=== PATIENT | male | born 1950 | race Caucasian/White ===

== ENCOUNTER → 2016-07-02 | Outpatient (CLI) | payer MEDICARE, OTHER | LOC: OD 16:42 | PROVIDERS: ATTEND Urology | DX: R97.21 Rising PSA following treatment for malignant neoplasm of prostate (principal) | CPT/HCPCS: 36415 ==

== ENCOUNTER 2016-12-23 16:12 | Inpatient (IN) | payer MEDICARE ==
[2016-12-23] MEDS ORDERED: LEVOFLOXACIN 750 MG/D5W RTU 150 ML IV ONE (16:39)
[2016-12-23] MEDS ORDERED: ACETAMINOPHEN 325 MG TABLET PO ONE (16:39)
[2016-12-23] MEDS: NORMAL SALINE 1000 ML 1,000 ML IV PRN ×2 (16:56→17:39)
[2016-12-23 17:15] LABS: PROTHROMBIN TIME 13.4 SEC (11.4-15.4)
[2016-12-23] MEDS ORDERED: ALBUTEROL SULFATE 0.083% NEB 2.5 MG/3 ML AMPUL NEB ONE (17:22)
--- NOTE | 2016-12-23 17:24 | ER Document Report ---
ED Fever - General Chief Complaint: Fever Stated Complaint: FEVER,TREMORS Time Seen by Provider: 12/23/16 16:39 Mode of Arrival: Ambulatory Information source: Patient, Relative TRAVEL OUTSIDE OF THE [place] IN LAST 30 DAYS: No - HPI Patient complains to provider of: Generalized weakness, fever, chills Onset: Yesterday Onset/Duration: Worse Quality of pain: Achy Severity: Moderate Pain Level: 4 Associated symptoms: Body/muscle aches, Weakness Similar symptoms previously: No Recently seen / treated by doctor: Yes Notes: Patient is a 66-year-old male with a history of diabetes, high cholesterol, who recently had a penile implant performed on Thursday of last week, presents to the emergency room with daughter today, for complaints of fever, generalized weakness, decreased appetite, decreased responsiveness, daughter reports she has been sleeping a lot over the past few days, he has been taking his Percocet every 4 hours so he has had a low-grade temp, he has had a nonproductive cough, no nausea or vomiting, no drainage from his wound, no difficulty or pain with urination - Related Data Allergies/Adverse Reactions: Penicillins Allergy (Severe, Verified 12/23/16 16:30) Anaphylaxis Home Medications: Current Home Medications Canagliflozin [Invokana] 1 tab PO DAILY 12/23/16 [History] Ciprofloxacin HCl [Cipro 500 mg Tablet] 500 mg PO BID 12/23/16 [History] Gabapentin 100 mg PO BID 12/23/16 [History] Hydralazine HCl 50 mg PO TID 12/23/16 [History] Lisinopril/Hydrochlorothiazide [Lisinopril-Hctz 20-25 mg Tab] 1 each PO DAILY [History] Oxycodone HCl/Acetaminophen [Oxycodone-Acetaminophen 5-325] 1 each PO Q4H PRN [History] Simvastatin [Zocor 20 mg Tablet] 20 mg PO QHS 12/23/16 [History] Sulfamethoxazole/Trimethoprim [Bactrim Ds Tablet] 1 each PO BID 12/23/16 [ History] Past Medical History - General Information source: Patient, Relative - Social History Smoking Status: Never Smoker Frequency of alcohol use: None Drug Abuse: None Family History: Reviewed & Not Pertinent Patient has suicidal ideation: No Patient has homicidal ideation: No - Past Medical History Cardiac Medical History: Reports: Hx Coronary Artery Disease, Hx Hypercholesterolemia, Hx Hypertension Denies: Hx Heart Attack Pulmonary Medical History: Reports: Hx Asthma Denies: Hx Bronchitis, Hx COPD, Hx Pneumonia Neurological Medical History: Denies: Hx Cerebrovascular Accident, Hx Seizures Endocrine Medical History: Reports: Hx Diabetes Mellitus Type 2 Renal/ Medical History: Denies: Hx Peritoneal Dialysis Musculoskeltal Medical History: Denies Hx Arthritis - Immunizations Hx Diphtheria, Pertussis, Tetanus Vaccination: No Review of Systems - Review of Systems Constitutional: See HPI EENT: No symptoms reported Cardiovascular: No symptoms reported Respiratory: No symptoms reported Gastrointestinal: See HPI Genitourinary: No symptoms reported Male Genitourinary: See HPI Musculoskeletal: No symptoms reported Skin: No symptoms reported Hematologic/Lymphatic: No symptoms reported Neurological/Psychological: No symptoms reported -: Yes All other systems reviewed and negative Physical Exam - Vital signs Vitals: Temp Pulse BP Pulse Ox 97.9 F 80 112/98 H 89 L 12/23/16 16:34 12/23/16 16:34 12/23/16 16:34 12/23/16 16:34 Interpretation: Hypoxic - General General appearance: Appears well, Alert - HEENT Head: Normocephalic, Atraumatic Eyes: Normal Conjunctiva: Normal Extraocular movements intact: Yes Eyelashes: Normal Pupils: PERRL Mucous membranes: Dry Pharynx: Normal Neck: Normal - Respiratory Respiratory status: No respiratory distress Chest status: Nontender Breath sounds: Wheezing - mild Chest palpation: Normal - Cardiovascular Rhythm: Regular Heart sounds: Normal auscultation Murmur: No - Abdominal Inspection: Normal Distension: No distension Bowel sounds: Normal Tenderness: Nontender Organomegaly: No organomegaly - Genitourinary Scrotum: Other - Diffuse ecchymosis, diffuse mild tenderness, no masses, no active drainage, surgical wound is clean dry and intact - Back Back: Normal, Nontender - Extremities General upper extremity: Normal inspection, Nontender, Normal color, Normal ROM , Normal temperature General lower extremity: Normal inspection, Nontender, Normal color, Normal ROM , Normal temperature, Normal weight bearing. No: Steven's sign - Neurological Neuro grossly intact: Yes Cognition: Normal Orientation: AAOx4 [place]aim Coma Scale Eye Opening: Spontaneous [place] Coma Scale Verbal: Oriented [place] Coma Scale Motor: Obeys Commands [place] Coma Scale Total: 15 Speech: Normal Motor strength normal: LUE, RUE, LLE, RLE Sensory: Normal - Psychological Associated symptoms: Normal affect, Normal mood - Skin Skin Temperature: Warm Skin Moisture: Dry Skin Color: Normal Course - Re-evaluation Re-evalutation: 12/23/16 18:51 patient was discussed with Dr. River Cash, urologist to [facility], he did review patient's previous records including preop labs which showed a BUN and creatinine at 33 and 1.28, no liver enzymes were performed for preop labs Was discussed with agile test lead, Dr. Andrews, increased to see patient on consult, requested that a renal ultrasound be performed, also patient to receive IV fluids as symptoms are likely related to dehydration 12/23/16 19:01 Requested channel process plant operator to call Dr. Nina, channel process plant operator left a voicemail requesting a return phone call 12/23/16 19:[address] Houston who agrees to admit to the IM for further evaluation and treatment - Vital Signs Vital signs: Temp Pulse Resp BP Pulse Ox 97.9 F 80 18 112/98 H 89 L 12/23/16 16:34 12/23/16 16:34 12/23/16 16:39 12/23/16 16:34 12/23/16 16:34 - Laboratory Result Diagrams: 12/23/16 16:55 12/23/16 16:55 Laboratory results interpreted by me: 12/23/16 12/23/16 16:55 16:55 Seg Neuts % (Manual) 88 H Band Neutrophils % 1 L Lymphocytes % (Manual) 1 L Abs Lymphs (Manual) 0.1 L Sodium 133.5 L Potassium 5.2 H Carbon Dioxide 21 L BUN 94 H Creatinine 4.37 H Est GFR ( Amer) 16 L Est GFR (Non-Af Amer) 14 L Glucose 193 H Direct Bilirubin 0.7 H AST 104 H ALT 87 H Alkaline Phosphatase 162 H Albumin 3.3 L - Diagnostic Test Radiology reviewed: Image reviewed, Reports reviewed - EKG Interpretation by Me EKG shows normal: Sinus rhythm Rate: Normal Rhythm: NSR Discharge - Discharge Clinical Impression: Acute renal insufficiency Pneumonia Qualifiers: Pneumonia type: due to unspecified organism Laterality: bilateral Lung location : lower lobe of lung Qualified Code(s): J18.9 - Pneumonia, unspecified organism Condition: Fair Disposition: ADMITTED INPATIENT Admitting Provider: [facility] Unit Admitted: [facility]
[2016-12-23 17:27] LABS: HEMATOCRIT 42.3 % (37.9-51.0); HEMOGLOBIN 14.3 g/dL (13.5-17.0); HGB HCT DIFFERENCE 0.6; MEAN CORPUSCULAR HEMOGLOBIN 30.2 pg (27.0-33.4); MEAN CORPUSCULAR HGB CONC 33.8 g/dL (32.0-36.0); MEAN CORPUSCULAR VOLUME 89 fl (80-97); RED BLOOD COUNT 4.73 10^6/uL (4.35-5.55); RED CELL DISTRIBUTION WIDTH 13.7 % (11.5-14.0)
[2016-12-23 17:28] LABS: VENOUS BLOOD BASE EXCESS -2.5 mmol/L; VENOUS BLOOD HCO3 22.3 mmol/L (20-32); VENOUS BLOOD PCO2 38.8 mmHg (35-63); VENOUS BLOOD PH 7.38 (7.30-7.42)
[2016-12-23 17:29] LABS: ALANINE AMINOTRANSFERASE 87 U/L (21-72); ALBUMIN 3.3 g/dL (3.5-5.0); ALKALINE PHOSPHATASE 162 U/L (38-126); ANION GAP 15 (5-19); ASPARTATE AMINO TRANSFERASE 104 U/L (17-59); BILIRUBIN,DIRECT 0.7 mg/dL (0.0-0.4); BILIRUBIN,TOTAL 0.7 mg/dL (0.2-1.3); BLOOD UREA NITROGEN 94 mg/dL (7-20); CALCIUM 9.3 mg/dL (8.4-10.2); CARBON DIOXIDE 21 mmol/L (22-30); CHLORIDE 98 mmol/L (98-107); GLUCOSE 193 mg/dL (75-110); POTASSIUM 5.2 mmol/L (3.6-5.0); SODIUM 133.5 mmol/L (137-145)
[2016-12-23 17:34] LABS: CREATININE RESULT 4.37 mg/dL (0.52-1.25)
[2016-12-23 17:48] LABS: BAND NEUTROPHILS % (MANUAL) 1 % (3-5); BASOPHILS % (MANUAL) 2 % (0-2); EOSINOPHILS % (MANUAL) 3 % (0-6); LYMPHOCYTES % (MANUAL) 1 % (13-45); TOTAL CELLS COUNTED 100
[2016-12-23 17:49] LABS: RBC MORPHOLOGY COMMENT NORMO-CYTIC/CHROMIC
--- NOTE | 2016-12-23 18:38 | RADIOLOGY REPORT (SQ) ---
EXAM DESCRIPTION: CHEST PA/LAT COMPLETED DATE/TIME: 12/23/2016 6:21 pm REASON FOR STUDY: cough COMPARISON: None. EXAM PARAMETERS: NUMBER OF VIEWS: two views TECHNIQUE: Digital Frontal and Lateral radiographic views of the chest acquired. RADIATION DOSE: NA LIMITATIONS: none FINDINGS: LUNGS AND PLEURA: Bilateral lower lobe airspace disease with trace bilateral pleural effus ions. MEDIASTINUM AND HILAR STRUCTURES: No masses or contour abnormalities. HEART AND VASCULAR STRUCTURES: Heart is enlarge. No evidence for failure. BONES: No acute findings. HARDWARE: None in the chest. OTHER: No other significant finding. IMPRESSION: BILATERAL LOWER LOBE AIRSPACE DISEASE WITH TRACE BILATERAL PLEURAL EFFUSIONS. MAIN DIFF ERENTIAL INCLUDES SUBSEGMENTAL ATELECTASIS, ASPIRATION, OR PNEUMONIA. RECOMMEND FOLLOWUP RADIOGRAPHS 4 TO 6 WEEKS TO ENSURE RESOLUTION. TECHNICAL DOCUMENTATION: JOB ID: [id number] [employer]- All Rights Reserved
[2016-12-23] MEDS ORDERED: NORMAL SALINE 1000 ML 1,000 ML IV PRN ×2 (18:46→19:30)
--- NOTE | 2016-12-23 22:26 | RADIOLOGY REPORT (SQ) ---
EXAM DESCRIPTION: U/S RETROPERITON LTD COMPLETED DATE/TIME: 12/23/2016 10:18 pm REASON FOR STUDY: acute renal insufficiency COMPARISON: None. TECHNIQUE: Dynamic and static grayscale images acquired of the kidneys and bladder and recorded on P ACS. Additional selected color Doppler and spectral images recorded. LIMITATIONS: Study is limited due to the patient's condition. FINDINGS: RIGHT KIDNEY: 11.4 cm in length. Normal echogenicity. No solid or suspicious masses. No hydronephrosis. No calcifications. LEFT KIDNEY: 14.9 cm in length. Normal echogenicity. No solid or suspicious masses. No hydrone phrosis. No calcifications. BLADDER: Bladder was not visualized. OTHER FINDINGS: No other significant finding. IMPRESSION: Limited study as noted above. No significant renal abnormalities were identified TECHNICAL DOCUMENTATION: JOB ID: [id number] [employer]- All Rights Reserved
[2016-12-23] MEDS ORDERED: IPRATROPIUM/ALBUTEROL 0.5-2.5 MG/3 ML AMPUL NEB PRN (23:45)
[2016-12-24] MEDS ORDERED: DEXTROSE 40% GEL 15 GM TUBE PO PRN (00:07)
[2016-12-24] MEDS ORDERED: DEXTROSE 50%-WATER SYRINGE 25 GM/50 ML DOSE IV PRN (00:07)
[2016-12-24] MEDS ORDERED: GLUCAGON,HUMAN RECOMB 1 MG INJ IM PRN (00:07)
[2016-12-24] MEDS ORDERED: DEXTROSE 50%-WATER SYRINGE 12.5 GM/25 ML DOSE IV PRN (00:07)
[2016-12-24] MEDS ORDERED: DEXTROSE 40% GEL 15 GM TUBE X 2 PO PRN (00:07)
[2016-12-24] MEDS ORDERED: ACETAMINOPHEN 325 MG TABLET PO PRN (00:08)
[2016-12-24] MEDS: OXYCODONE-ACETAMINOPHEN 5-325 MG TABLET PO PRN ×2 (01:00→09:20)
[2016-12-24 02:04] LABS: APPEARANCE,URINE SLIGHTLY-CLOUDY; BILIRUBIN,URINE NEGATIVE (NEGATIVE); GLUCOSE, URINE >=500 mg/dL (NEGATIVE); KETONES,URINE NEGATIVE (NEGATIVE); LEUKOCYTE ESTERASE,URINE NEGATIVE (NEGATIVE); NITRITE,URINE NEGATIVE (NEGATIVE); PROTEIN,URINE NEGATIVE (NEGATIVE); URINE SPECIFIC GRAVITY 1.012; UROBILINOGEN,URINE NEGATIVE mg/dL (<2.0)
[2016-12-24] MEDS: LANSOPRAZOLE 30 MG TAB.RAP.DR PO SCH (05:25)
[2016-12-24] MEDS: HEPARIN SOD (PORCINE) 5,000 UNIT/ML 1 ML SYRINGE SUBCUT SCH ×3 (05:26→21:34)
[2016-12-24] MEDS: NORMAL SALINE 1000 ML 1,000 ML IV PRN (05:27)
[2016-12-24] MEDS: HYDRALAZINE HCL 50 MG TABLET PO SCH ×3 (06:23→21:30)
[2016-12-24 07:49] LABS: HEMATOCRIT 35.4 % (37.9-51.0); HGB HCT DIFFERENCE 0.6; MEAN CORPUSCULAR HEMOGLOBIN 30.8 pg (27.0-33.4); MEAN CORPUSCULAR VOLUME 91 fl (80-97); RED CELL DISTRIBUTION WIDTH 13.5 % (11.5-14.0); WHITE BLOOD COUNT 6.1 10^3/uL (4.0-10.5)
[2016-12-24 07:58] LABS: ALANINE AMINOTRANSFERASE 76 U/L (21-72); ALBUMIN 2.4 g/dL (3.5-5.0); ALKALINE PHOSPHATASE 122 U/L (38-126); ANION GAP 10 (5-19); ASPARTATE AMINO TRANSFERASE 63 U/L (17-59); BILIRUBIN,DIRECT 0.5 mg/dL (0.0-0.4); BILIRUBIN,TOTAL 0.5 mg/dL (0.2-1.3); BLOOD UREA NITROGEN 92 mg/dL (7-20); CARBON DIOXIDE 21 mmol/L (22-30); CHLORIDE 105 mmol/L (98-107); CHOLESTEROL 94.35 mg/dL (0-200); CREATININE RESULT 3.61 mg/dL (0.52-1.25); Direct HDL 15 mg/dL (>40); GLUCOSE 141 mg/dL (75-110); SODIUM 135.5 mmol/L (137-145); TOTAL PROTEIN 5.4 g/dL (6.3-8.2); TRIGLYCERIDES 158 mg/dL (<150); VLDL CHOLESTEROL 31.6 mg/dL (10-31)
[2016-12-24] MEDS: GLIPIZIDE XL 5 MG TAB.ER.24 PO SCH ×2 (08:09→20:29)
[2016-12-24 08:11] LABS: BAND NEUTROPHILS % (MANUAL) 1 % (3-5); BASOPHILS % (MANUAL) 0 % (0-2); EOSINOPHILS % (MANUAL) 1 % (0-6); LYMPHOCYTES % (MANUAL) 2 % (13-45); POLYCHROMASIA SLIGHT; TOTAL CELLS COUNTED 100
[2016-12-24 08:19] LABS: DIRECT LDL < 30 mg/dL (<100)
--- NOTE | 2016-12-24 08:20 | EKG REPORT ---
SEVERITY:- ABNORMAL ECG - SINUS RHYTHM PACS OLD ANTEROSEPTAL PR : Confirmed by: Giovanny Castillo MD 24-Dec-2016 08:20:27
[2016-12-24] MEDS: ASPIRIN 81 MG TABLET, CHEWABLE PO SCH (09:20)
[2016-12-24] MEDS: GABAPENTIN 100 MG CAPSULE PO SCH ×2 (09:20→20:28)
[2016-12-24] MEDS: AZITHROMYCIN 500 MG in DEXTROSE 5%-WATER 250 ML IV SCH (10:12)
--- NOTE | 2016-12-24 10:19 | PDOC H&P ---
History of Present Illness Admission Date/PCP: 12/23/16 19:51 Patient complains of: Decreased appetite, decreased oral intake, cough, weakness and fever since past 5 days after penile implant. History of Present Illness: VIVIAN FARR is a 66 year old male with hx of DM2/DM neuropathy/HTN/ Hyperlipidemia/PAD s.p right leg angioplasty/Arryhythmias/Back pain/Elevated PSA /ED/Obesity who had penile implant in [place] on 12/19/2016. He has been having decreased appetite, decreased oral intake, weakness, cough and some wheezes since after the procedure. On account of the worsening of the symptoms, he was brought to ER by his daughter. His oxygen saturation was 89% on RA at ER.His BUN /Cr was 94/4.3 compared to 33/1.28 on 12/08/2016 prior to the procedure. Past Medical History Cardiac Medical History: Reports: Coronary Artery Disease, Hyperlipidema, Hypertension Denies: Myocardial Infarction Pulmonary Medical History: Reports: Asthma Denies: Bronchitis, Chronic Obstructive Pulmonary Disease (COPD), Pneumonia Neurological Medical History: Denies: Seizures Endocrine Medical History: Reports: Diabetes Mellitus Type 2 Musculoskeltal Medical History: Denies: Arthritis Hematology: Denies: Anemia Social History Smoking Status: Never Smoker Frequency of Alcohol Use: Rare Hx Recreational Drug Use: No Drugs: None Hx Prescription Drug Abuse: No Family History Family History: Reviewed & Not Pertinent Parental Family History Reviewed: Yes Children Family History Reviewed: Yes Sibling(s) Family History Reviewed.: Yes Medication/Allergy Home Medications: Aspirin [Aspirin 81 mg Chewable Tablet] 1 tab PO DAILY 03/13/15 Glipizide [Glipizide ER] 10 mg PO BID 03/13/15 Metformin HCl [Glucophage] 1 tab PO BID 03/13/15 Canagliflozin [Invokana] 1 tab PO DAILY 12/23/16 Ciprofloxacin HCl [Cipro 500 mg Tablet] 500 mg PO BID 12/23/16 Gabapentin 100 mg PO BID 12/23/16 Hydralazine HCl 50 mg PO TID 12/23/16 Lisinopril/Hydrochlorothiazide [Lisinopril-Hctz 20-25 mg Tab] 1 each PO DAILY Oxycodone HCl/Acetaminophen [Oxycodone-Acetaminophen 5-325] 1 each PO Q6H PRN Simvastatin [Zocor 20 mg Tablet] 20 mg PO QHS 12/23/16 Sulfamethoxazole/Trimethoprim [Bactrim Ds Tablet] 1 each PO BID 12/23/16 Allergies/Adverse Reactions: Penicillins Allergy (Severe, Verified 12/23/16 16:30) Anaphylaxis Review of Systems All systems: as per PMH Constitutional: PRESENT: anorexia, fatigue, fever(s), weakness Eyes: PRESENT: as per HPI Ears: PRESENT: as per HPI Nose, Mouth, and Throat: PRESENT: as per HPI Cardiovascular: PRESENT: as per HPI Respiratory: PRESENT: cough Gastrointestinal: PRESENT: as per HPI Genitourinary: PRESENT: as per HPI, difficulty urinating Musculoskeletal: PRESENT: as per HPI Integumentary: PRESENT: as per HPI Neurological: PRESENT: as per HPI, weakness Psychiatric: PRESENT: as per HPI Endocrine: PRESENT: as per HPI Hematologic/Lymphatic: PRESENT: as per HPI Allergic/Immunologic: PRESENT: as per HPI Physical Exam Vital Signs: Temp Pulse Resp BP Pulse Ox 98.2 F 77 16 113/51 L 96 12/24/16 08:00 12/24/16 08:00 12/24/16 08:00 12/24/16 08:00 12/24/16 08:00 Intake & Output 12/23/16 12/24/16 12/25/16 06:59 06:59 06:59 Intake Total 1100 Output Total 1400 Balance -300 Weight 93.9 kg General appearance: PRESENT: no acute distress, cooperative, well-developed, well-nourished Head exam: PRESENT: atraumatic, normocephalic Eye exam: PRESENT: EOMI, PERRLA Ear exam: PRESENT: normal external ear exam, TM's normal bilaterally Mouth exam: PRESENT: dry mucosa, neck supple, tongue midline Neck exam: PRESENT: full ROM Respiratory exam: PRESENT: crackles, decreased breath sounds, symmetrical Cardiovascular exam: PRESENT: +S1, +S2 Pulses: PRESENT: +2 pedal pulses bilateral GI/Abdominal exam: PRESENT: normal bowel sounds, soft Rectal exam: PRESENT: deferred Neurological exam: PRESENT: alert, awake, oriented to person, oriented to place , oriented to time Psychiatric exam: PRESENT: normal mood Results Laboratory Results: 12/24/16 05:09 12/24/16 05:09 12/24/16 12/24/16 12/24/16 01:15 05:09 05:09 WBC 6.1 RBC 3.90 L Hgb 12.0 L D Hct 35.4 L MCV 91 MCH 30.8 MCHC 34.0 RDW 13.5 Plt Count 102 L Seg Neutrophils % Not Reportable Lymphocytes % Not Reportable Monocytes % Not Reportable Eosinophils % Not Reportable Basophils % Not Reportable Absolute Neutrophils Not Reportable Absolute Lymphocytes Not Reportable Absolute Monocytes Not Reportable Absolute Eosinophils Not Reportable Absolute Basophils Not Reportable Sodium 135.5 L Potassium 5.0 Chloride 105 Carbon Dioxide 21 L Anion Gap 10 BUN 92 H Creatinine 3.61 H Est GFR ( Amer) 21 L Est GFR (Non-Af Amer) 17 L Glucose 141 H Calcium 8.0 L Total Bilirubin 0.5 AST 63 H ALT 76 H Alkaline Phosphatase 122 Total Protein 5.4 L Albumin 2.4 L Triglycerides 158 H Cholesterol 94.35 LDL Cholesterol Direct < 30 VLDL Cholesterol 31.6 H HDL Cholesterol 15 L TSH Urine Color YELLOW Urine Appearance SLIGHTLY-CLOUDY Urine pH 5.0 Ur Specific [place] 1.012 Urine Protein NEGATIVE Urine Glucose (UA) >=500 H Urine Ketones NEGATIVE Urine Blood MODERATE H Urine Nitrite NEGATIVE Ur Leukocyte Esterase NEGATIVE Urine WBC (Auto) 3 Urine RBC (Auto) 28 12/24/16 05:09 WBC RBC Hgb Hct MCV MCH MCHC RDW Plt Count Seg Neutrophils % Lymphocytes % Monocytes % Eosinophils % Basophils % Absolute Neutrophils Absolute Lymphocytes Absolute Monocytes Absolute Eosinophils Absolute Basophils Sodium Potassium Chloride Carbon Dioxide Anion Gap BUN Creatinine Est GFR ( Amer) Est GFR (Non-Af Amer) Glucose Calcium Total Bilirubin AST ALT Alkaline Phosphatase Total Protein Albumin Triglycerides Cholesterol LDL Cholesterol Direct VLDL Cholesterol HDL Cholesterol TSH 3.63 Urine Color Urine Appearance Urine pH Ur Specific [place] Urine Protein Urine Glucose (UA) Urine Ketones Urine Blood Urine Nitrite Ur Leukocyte Esterase Urine WBC (Auto) Urine RBC (Auto) Impressions: Chest X-Ray 12/23/16 17:22 IMPRESSION: BILATERAL LOWER LOBE AIRSPACE DISEASE WITH TRACE BILATERAL PLEURAL EFFUSIONS. MAIN DIFFERENTIAL INCLUDES SUBSEGMENTAL ATELECTASIS, ASPIRATION, OR PNEUMONIA. RECOMMEND FOLLOWUP RADIOGRAPHS 4 TO 6 WEEKS TO ENSURE RESOLUTION. Renal Ultrasound 12/23/16 19:30 IMPRESSION: Limited study as noted above. No significant renal abnormalities were identified Assessment & Plan - Diagnosis (1) Acute kidney injury Is this a current diagnosis for this admission?: Yes Plan: He had 3 Liters of normal saline at ER; we will ct him with Normal saline at 125 cc/hr; Avoid nephrotoxics; strict input/output chart; daily weight; We will hold metformin and Lisinopril/HCTZ for now.Monitor chemistries daily.Renal US showed no obstructive uropathy. (2) Pneumonia Qualifiers: Pneumonia type: due to unspecified organism Laterality: bilateral Lung location: lower lobe of lung Qualified Code(s): J18.9 - Pneumonia, unspecified organism Is this a current diagnosis for this admission?: Yes Plan: Ct with Oxygen by N/C at 2 L/min; Rocephin 1 g daily IV; Azithromycin 500 mg qd IV; Tylenol 650 mg q4h prn po; Duonebs q6h prn; F/u Bloodand sputum cultures. (3) Diabetes mellitus type 2 in obese Is this a current diagnosis for this admission?: Yes Plan: Ct with Glipizide 10 mg BID po; Invokana 300 mg qd po; Hold Metformin 1000mg BID ; accucheck qac, qhs with slidding scale with humalog insulin oMH protocol; 1800calorie ADA diet. (4) Diabetic neuropathy Qualifiers: Diabetes mellitus type: type 2 Diabetes mellitus complication detail: diabetic polyneuropathy Qualified Code(s): E11.42 - Type 2 diabetes mellitus with diabetic polyneuropathy Is this a current diagnosis for this admission?: Yes Plan: Ct with Gabapentin 100 mg BID po. (5) Hypertension Qualifiers: Hypertension type: essential hypertension Qualified Code(s): I10 - Essential (primary) hypertension Is this a current diagnosis for this admission?: Yes Plan: Ct with Hydralazine 50 mg TID po; Hold Lisinopril/HCTZ due to acute kidney injury with hyperkalemia.Ct with 2 g sodium diet. (6) Hyperlipidemia Qualifiers: Hyperlipidemia type: mixed hyperlipidemia Qualified Code(s): E78.2 - Mixed hyperlipidemia Is this a current diagnosis for this admission?: Yes Plan: Ct with Simvastatin 20 mg qhs po; 200 mg cholesterol diet. (7) PAD (peripheral artery disease) Is this a current diagnosis for this admission?: Yes Plan: Ct with ASA 81 mg qd; cardiac diet. (8) Lumbago Is this a current diagnosis for this admission?: Yes Plan: Ct with Percocet 5/325 1 q6h prn po. (9) DVT prophylaxis Is this a current diagnosis for this admission?: Yes Plan: Ct with Heparin 5000iu q8h subcut; SCD. - Time Time Spent: 30 to 50 Minutes Medications reviewed and adjusted accordingly: Yes Anticipated discharge: Home Within: within 72 hours - Inpatient Certification Medical Necessity: Failure to Improve With Outpatient Therapy, Significant Comorbidiites Make Outpatient Treatment Too Risky, Need Close Monitoring Due to Risk of Patient Decompensation, Need For IV Fluids, Need for Pain Control, Need for IV Antibiotics
[2016-12-24] MEDS ORDERED: DOCUSATE SODIUM 100 MG CAPSULE PO ONE (12:00)
[2016-12-24] MEDS: INSULIN LISPRO 100 UNIT/ML 3 ML VIAL SUBCUT PRN (13:35)
[2016-12-24] MEDS ORDERED: ONDANSETRON HCL INJ/PF 4 MG/2 ML SDV IV PRN (19:33)
[2016-12-24] MEDS: MORPHINE SULFATE 10 MG/ML INJ IV PRN (20:23)
[2016-12-24] MEDS: DOCUSATE SODIUM 100 MG CAPSULE PO SCH (20:28)
[2016-12-24] MEDS: ZOLPIDEM TARTRATE 5 MG TABLET PO PRN (21:29)
[2016-12-24] MEDS: SIMVASTATIN 10 MG TABLET PO SCH (21:30)
[2016-12-25] MEDS: MORPHINE SULFATE 10 MG/ML INJ IV PRN ×3 (03:07→19:55)
[2016-12-25] MEDS: NORMAL SALINE 1000 ML 1,000 ML IV PRN ×2 (03:08→21:31)
[2016-12-25] MEDS: HYDRALAZINE HCL 50 MG TABLET PO SCH ×3 (05:20→21:29)
[2016-12-25] MEDS: LANSOPRAZOLE 30 MG TAB.RAP.DR PO SCH (05:24)
[2016-12-25] MEDS: HEPARIN SOD (PORCINE) 5,000 UNIT/ML 1 ML SYRINGE SUBCUT SCH ×3 (05:25→21:33)
[2016-12-25 07:22] LABS: ABSOLUTE BASOPHILS # (AUTO) 0.1 10^3/uL (0.0-0.2); ABSOLUTE EOSINOPHILS # (AUTO) 0.1 10^3/uL (0.0-0.6); ABSOLUTE LYMPHOCYTES (AUTO) 0.4 10^3/uL (0.5-4.7); ABSOLUTE MONOCYTES (AUTO) 1.1 10^3/uL (0.1-1.4); ABSOLUTE NEUT (AUTO) 4.7 10^3/uL (1.7-8.2); BASOPHILS % (AUTO) 0.8 % (0-2); EOSINOPHILS % (AUTO) 0.8 % (0-6); HEMATOCRIT 32.9 % (37.9-51.0); HEMOGLOBIN 11.2 g/dL (13.5-17.0); HGB HCT DIFFERENCE 0.7; MEAN CORPUSCULAR HEMOGLOBIN 30.8 pg (27.0-33.4); MEAN CORPUSCULAR HGB CONC 34.1 g/dL (32.0-36.0); MEAN CORPUSCULAR VOLUME 90 fl (80-97); MONOCYTES % (AUTO) 17.9 % (3-13); RED BLOOD COUNT 3.66 10^6/uL (4.35-5.55); RED CELL DISTRIBUTION WIDTH 13.4 % (11.5-14.0); SEGMENTED NEUTROPHILS % (AUTO) 74.5 % (42-78); WHITE BLOOD COUNT 6.3 10^3/uL (4.0-10.5)
[2016-12-25 07:45] LABS: ALANINE AMINOTRANSFERASE 88 U/L (21-72); ALBUMIN 2.3 g/dL (3.5-5.0); ALKALINE PHOSPHATASE 201 U/L (38-126); ANION GAP 6 (5-19); ASPARTATE AMINO TRANSFERASE 76 U/L (17-59); BILIRUBIN,DIRECT 0.5 mg/dL (0.0-0.4); BILIRUBIN,TOTAL 0.5 mg/dL (0.2-1.3); BLOOD UREA NITROGEN 82 mg/dL (7-20); CALCIUM 8.3 mg/dL (8.4-10.2); CARBON DIOXIDE 23 mmol/L (22-30); CHLORIDE 110 mmol/L (98-107); CREATININE RESULT 2.78 mg/dL (0.52-1.25); GLUCOSE 71 mg/dL (75-110); POTASSIUM 4.5 mmol/L (3.6-5.0); SODIUM 138.8 mmol/L (137-145); TOTAL PROTEIN 5.5 g/dL (6.3-8.2)
[2016-12-25] MEDS: GLIPIZIDE XL 5 MG TAB.ER.24 PO SCH ×2 (08:06→16:02)
[2016-12-25] MEDS: AZITHROMYCIN 500 MG in DEXTROSE 5%-WATER 250 ML IV SCH (10:07)
[2016-12-25] MEDS: DOCUSATE SODIUM 100 MG CAPSULE PO SCH ×2 (10:08→17:50)
[2016-12-25] MEDS: ASPIRIN 81 MG TABLET, CHEWABLE PO SCH (10:08)
[2016-12-25] MEDS: GABAPENTIN 100 MG CAPSULE PO SCH ×2 (10:08→17:50)
[2016-12-25] MEDS ORDERED: ACETAMINOPHEN 325 MG TABLET PO PRN (13:57)
--- NOTE | 2016-12-25 14:11 | PDOC PROGRESS REPORT ---
Subjective Progress Note for:: 12/25/16 Subjective:: Pt was delirious yesterday and was complaining of gen. pain worse at the scrotum. The scrotum was painful and swollen. He has not been eating well and has not had bowel movement since past 5 days after the penile implant according to his daughter.I added Morphine and Zofran IV and requested for CT abdomen and pelvis and scrotal US. I discussed his care at length with his daughter and we do not have urologist recreation facility attendant at [facility], so I called [facility] and spoke to urologist,Dr Carrillo recreation facility attendant for Dr Ibarra and he agreed to get CT abdomen/pelvis and Scrotal US and to get in touch with them this morning with report and for transfer to [place] if th ept is not getting better. Pt is better today and awake and alert and no longer in pains, though his appetite is still poor.The report of CT abdomen/pelvis and Scrotal US is still pending due to technical issues with radiology dept. I again discussed the plan of care with pt's daughter today. We will put pt on Glucerna since he is diabetic. Physical Exam Vital Signs: Temp Pulse Resp BP Pulse Ox 98.2 F 70 15 109/51 L 93 12/25/16 07:24 12/25/16 08:00 12/25/16 08:00 12/25/16 07:24 12/25/16 08:00 Intake & Output 12/24/16 12/25/16 12/26/16 06:59 06:59 06:59 Intake Total 1100 3816 Output Total 1400 2750 Balance -300 1066 Weight 93.9 kg 92.8 kg General appearance: PRESENT: no acute distress, cooperative, well-developed, well-nourished Head exam: PRESENT: atraumatic, normocephalic Eye exam: PRESENT: EOMI, PERRLA Ear exam: PRESENT: TM's normal bilaterally Mouth exam: PRESENT: neck supple, tongue midline Neck exam: PRESENT: full ROM Respiratory exam: PRESENT: clear to auscultation marino, symmetrical Cardiovascular exam: PRESENT: +S1, +S2 Pulses: PRESENT: +1 pedal pulses bilateral GI/Abdominal exam: PRESENT: normal bowel sounds, soft Additonal comments: Scrotal edema and tenderness. Rectal exam: PRESENT: deferred Neurological exam: PRESENT: alert, awake, oriented to person, oriented to place Results Laboratory Results: 12/25/16 06:06 12/25/16 06:06 12/25/16 12/25/16 06:06 06:06 WBC 6.3 RBC 3.66 L Hgb 11.2 L Hct 32.9 L MCV 90 MCH 30.8 MCHC 34.1 RDW 13.4 Plt Count 116 L Seg Neutrophils % 74.5 Lymphocytes % 6.0 L Monocytes % 17.9 H Eosinophils % 0.8 Basophils % 0.8 Absolute Neutrophils 4.7 Absolute Lymphocytes 0.4 L Absolute Monocytes 1.1 Absolute Eosinophils 0.1 Absolute Basophils 0.1 Sodium 138.8 Potassium 4.5 Chloride 110 H Carbon Dioxide 23 Anion Gap 6 BUN 82 H Creatinine 2.78 H Est GFR ( Amer) 28 L Est GFR (Non-Af Amer) 23 L Glucose 71 L Calcium 8.3 L Total Bilirubin 0.5 AST 76 H ALT 88 H Alkaline Phosphatase 201 H Total Protein 5.5 L Albumin 2.3 L Impressions: Chest X-Ray 12/23/16 17:22 IMPRESSION: BILATERAL LOWER LOBE AIRSPACE DISEASE WITH TRACE BILATERAL PLEURAL EFFUSIONS. MAIN DIFFERENTIAL INCLUDES SUBSEGMENTAL ATELECTASIS, ASPIRATION, OR PNEUMONIA. RECOMMEND FOLLOWUP RADIOGRAPHS 4 TO 6 WEEKS TO ENSURE RESOLUTION. Renal Ultrasound 12/23/16 19:30 IMPRESSION: Limited study as noted above. No significant renal abnormalities were identified Assessment & Plan - Diagnosis (1) Acute kidney injury Is this a current diagnosis for this admission?: Yes Plan: He had 3 Liters of normal saline at ER; we will ct him with Normal saline at 125 cc/hr; Avoid nephrotoxics; strict input/output chart; daily weight; We will hold metformin and Lisinopril/HCTZ for now.Monitor chemistries daily.Renal US showed no obstructive uropathy. (2) Pneumonia Qualifiers: Pneumonia type: due to unspecified organism Laterality: bilateral Lung location: lower lobe of lung Qualified Code(s): J18.9 - Pneumonia, unspecified organism Is this a current diagnosis for this admission?: Yes Plan: Ct with Oxygen by N/C at 2 L/min; Rocephin 1 g daily IV; Azithromycin 500 mg qd IV; Tylenol 650 mg q4h prn po; Duonebs q6h prn; F/u Bloodand sputum cultures. (3) Scrotal edema Is this a current diagnosis for this admission?: Yes Plan: Ct with scrotal elevation; ct with Morphine 4 mg q4h IV prn; Zofran 4 mg q4h IV prn; F/u CT abdomen/Pelvis and Scrotal US reports. F/u urologist, Dr Carrillo/ [facility] in [place] (4) Diabetes mellitus type 2 in obese Is this a current diagnosis for this admission?: Yes Plan: Ct with Glipizide 10 mg BID po; Invokana 300 mg qd po; Hold Metformin 1000mg BID ; accucheck qac, qhs with slidding scale with humalog insulin oM protocol; 1800calorie ADA diet. (5) Diabetic neuropathy Qualifiers: Diabetes mellitus type: type 2 Diabetes mellitus complication detail: diabetic polyneuropathy Qualified Code(s): E11.42 - Type 2 diabetes mellitus with diabetic polyneuropathy Is this a current diagnosis for this admission?: Yes Plan: Ct with Gabapentin 100 mg BID po. (6) Hypertension Qualifiers: Hypertension type: essential hypertension Qualified Code(s): I10 - Essential (primary) hypertension Is this a current diagnosis for this admission?: Yes Plan: Ct with Hydralazine 50 mg TID po; Hold Lisinopril/HCTZ due to acute kidney injury with hyperkalemia.Ct with 2 g sodium diet. (7) Hyperlipidemia Qualifiers: Hyperlipidemia type: mixed hyperlipidemia Qualified Code(s): E78.2 - Mixed hyperlipidemia Is this a current diagnosis for this admission?: Yes Plan: Ct with Simvastatin 20 mg qhs po; 200 mg cholesterol diet. (8) PAD (peripheral artery disease) Is this a current diagnosis for this admission?: Yes Plan: Ct with ASA 81 mg qd; cardiac diet. (9) Lumbago Qualifiers: Chronicity: unspecified Is this a current diagnosis for this admission?: Yes Plan: Ct with Percocet 5/325 1 q6h prn po. (10) DVT prophylaxis Is this a current diagnosis for this admission?: Yes Plan: Ct with Heparin 5000iu q8h subcut; SCD.
[2016-12-25] MEDS: ZOLPIDEM TARTRATE 5 MG TABLET PO PRN (21:28)
[2016-12-25] MEDS: SIMVASTATIN 10 MG TABLET PO SCH (21:31)
--- NOTE | 2016-12-25 23:22 | Physician Advisory Note ---
Physician Advisor ProgressNote .: [facility], I have reviewed the medical record for this patient. Physician Advisor Statement: Please consider documenting, if you agree: 1. "Acute hyponatremia, likely due to " [? intravascular volume depletion due to decreased intake due to PNA, or ... ?] 2. ? - "Possible sepsis, present on admission, due to pneumonia, evidenced by hypotension (MAP in the 60s-70s x hours), thrombocytopenia (102), acute hypoxemia of 89% on RA, significant acute metabolic encephalopathy (though GCS total still 15), ZELALEM." [Only list what you feel is possibly due to sepsis rather than due to another cause exclusively - if you think sepsis was possibly present.] 3. "Mild Acute hypoxemia due to " [PNA? sepsis? both?], or, if there were associated sx with the hypoxemia, "Mild Acute Hypoxemic Respiratory Failure with " [state sx from this: increased work of breathing? SOB? AMS? ...] - sat was as low as 89% RA. Thanks! CK
[2016-12-26] MEDS: NORMAL SALINE 1000 ML 1,000 ML IV PRN (05:41)
[2016-12-26] MEDS: LANSOPRAZOLE 30 MG TAB.RAP.DR PO SCH (05:46)
[2016-12-26] MEDS: HYDRALAZINE HCL 50 MG TABLET PO SCH ×3 (05:46→21:45)
[2016-12-26] MEDS: MORPHINE SULFATE 10 MG/ML INJ IV PRN ×3 (05:48→21:45)
[2016-12-26] MEDS: HEPARIN SOD (PORCINE) 5,000 UNIT/ML 1 ML SYRINGE SUBCUT SCH ×3 (05:49→21:44)
[2016-12-26 06:24] LABS: HEMATOCRIT 34.4 % (37.9-51.0); HEMOGLOBIN 11.5 g/dL (13.5-17.0); HGB HCT DIFFERENCE 0.1; MEAN CORPUSCULAR HEMOGLOBIN 30.2 pg (27.0-33.4); MEAN CORPUSCULAR HGB CONC 33.4 g/dL (32.0-36.0); MEAN CORPUSCULAR VOLUME 90 fl (80-97); RED CELL DISTRIBUTION WIDTH 13.4 % (11.5-14.0)
[2016-12-26 06:38] LABS: BLOOD UREA NITROGEN 68 mg/dL (7-20); CALCIUM 8.3 mg/dL (8.4-10.2); CREATININE RESULT 1.81 mg/dL (0.52-1.25); GLUCOSE 44 mg/dL (75-110)
[2016-12-26 06:39] LABS: ALANINE AMINOTRANSFERASE 133 U/L (21-72); ALBUMIN 2.3 g/dL (3.5-5.0); ALKALINE PHOSPHATASE 290 U/L (38-126); ANION GAP 7 (5-19); ASPARTATE AMINO TRANSFERASE 122 U/L (17-59); BILIRUBIN,DIRECT 0.5 mg/dL (0.0-0.4); BILIRUBIN,TOTAL 0.6 mg/dL (0.2-1.3); CARBON DIOXIDE 21 mmol/L (22-30); CHLORIDE 109 mmol/L (98-107); POTASSIUM 4.7 mmol/L (3.6-5.0); SODIUM 136.6 mmol/L (137-145); TOTAL PROTEIN 5.7 g/dL (6.3-8.2)
[2016-12-26 06:57] LABS: BASOPHILS % (MANUAL) 2 % (0-2); EOSINOPHILS % (MANUAL) 0 % (0-6); LYMPHOCYTES % (MANUAL) 10 % (13-45); TOTAL CELLS COUNTED 100
[2016-12-26 06:59] LABS: ANISOCYTOSIS SLIGHT; TOXIC GRANULATION SLIGHT
[2016-12-26] MEDS: GLIPIZIDE XL 5 MG TAB.ER.24 PO SCH ×2 (08:13→18:08)
[2016-12-26] MEDS: GABAPENTIN 100 MG CAPSULE PO SCH ×2 (09:32→18:09)
[2016-12-26] MEDS: DOCUSATE SODIUM 100 MG CAPSULE PO SCH ×2 (09:33→18:09)
[2016-12-26] MEDS: ASPIRIN 81 MG TABLET, CHEWABLE PO SCH (09:33)
[2016-12-26] MEDS: AZITHROMYCIN 500 MG in DEXTROSE 5%-WATER 250 ML IV SCH (09:34)
--- NOTE | 2016-12-26 11:34 | RADIOLOGY REPORT (SQ) ---
EXAM DESCRIPTION: U/S SCROTUM W/DOPPLER COMPLETED DATE/TIME: 12/24/2016 7:36 pm REASON FOR STUDY: abd pain COMPARISON: None. EXAM PARAMETERS: TECHNIQUE: Static and realtime ingram scale imaging of the scrotum and testes. Selec oleg color Doppler and spectral images recorded to document blood flow. LIMITATIONS: Limited due to patient pain. FINDINGS: RIGHT: TESTICLE: Normal size. Normal echotexture. Normal blood flow. No mass. EPIDIDYMIS: Normal allowing for a 5 mm cyst. HYDROCELE OR VARICOCELE: No. HERNIA OR EXTRA-TESTICULAR MASS: No. OTHER: No other significant finding. LEFT: TESTICLE: Normal size. Normal echotexture. Normal blood flow. No mass. EPIDIDYMIS: Normal. HYDROCELE OR VARICOCELE: Slightly prominent vessels measuring up to 4 mm. This raises the possibilit y of a varicocele. HERNIA OR EXTRA-TESTICULAR MASS: No. OTHER: No other significant finding. IMPRESSION: No evidence of testicular torsion or mass. Potential mild left varicocele. TECHNICAL DOCUMENTATION: JOB ID: [id number]- All Rights Reserved
--- NOTE | 2016-12-26 12:00 | RADIOLOGY REPORT (SQ) ---
EXAM DESCRIPTION: CT ABD/PELVIS NO ORAL OR IV COMPLETED DATE/TIME: 12/24/2016 6:47 pm REASON FOR STUDY: abd pain COMPARISON: None. TECHNIQUE: CT scan of the abdomen and pelvis performed without intravenous or oral contrast. Images reviewed with lung, soft tissue, and bone windows. Reconstructed coronal and sagittal MPR images revi ewed. All images stored on PACS. All CT scanners at this facility use dose modulation, iterative reconstruction, and/or weight based d osing when appropriate to reduce radiation dose to as low as reasonably achievable (ALARA). [facility]: Dose Right [facility]: CareDose [facility]: Dose Right [facility]: Teradose 4D [facility]: [employer] RADIATION DOSE: mGy. LIMITATIONS: None. FINDINGS: LOWER CHEST: Small effusions with right lower lobe fairly extensive incompletely evaluated consolidation. There are subcentimeter nodules in the right middle lobe. NON-CONTRASTED LIVER, SPLEEN, ADRENALS: Evaluation limited by lack of IV contrast. No identified sign ificant masses. PANCREAS: No masses. No peripancreatic inflammatory changes. GALLBLADDER: No identified stones by CT criteria. No inflammatory changes to suggest cholecystitis. RIGHT KIDNEY AND URETER: Atrophy. No obstruction or mass. LEFT KIDNEY AND URETER: Mild nonspecific perinephric stranding but no evidence of overt mass or sugge stion of stones or obstruction. AORTA AND RETROPERITONEUM: No aneurysm. No retroperitoneal masses or adenopathy. BOWEL AND PERITONEAL CAVITY: Mild gaseous distension of the colon. No small bowel obstruction eviden t. No evidence of free air or free fluid. APPENDIX: Normal. PELVIS, BLADDER, AND ABDOMINAL WALL:Recent penile implant by history. Associated gas in the perineum , penis and left inguinal region. No drainable collections are suggested. Gates catheter decompress es the bladder. No pelvic free fluid. BONES: No significant findings. OTHER: No other significant finding. IMPRESSION: 1. No acute abdominopelvic abnormality appreciated. Postoperative changes related to r ecent penile implant placement. No drainable collections. 2. Right renal atrophy. 3. Basilar pulmo nary changes suggesting pneumonia. There are, however, also some pulmonary nodules. While this coul d also be infectious/ inflammatory, neoplasm is in the differential. Therefore surveillance followup CT chest imaging is recommended once the patient has been appropriately treated for pneumonia. TECHNICAL DOCUMENTATION: JOB ID: [id number] Quality ID # [id number]: Final reports with documentation of one or more dose reduction techniques (e.g., Au tomated exposure control, adjustment of the mA and/or kV according to patient size, use of iterative reconstruction technique) 2010 [employer]- All Rights Reserved
--- NOTE | 2016-12-26 16:34 | PDOC PROGRESS REPORT ---
Subjective Progress Note for:: 12/26/16 Subjective:: Pt was delirious yesterday and was complaining of gen. pain worse at the scrotum. The scrotum was painful and swollen. He has not been eating well and has not had bowel movement since past 5 days after the penile implant according to his daughter.I added Morphine and Zofran IV and requested for CT abdomen and pelvis and scrotal US. I discussed his care at length with his daughter and we do not have urologist admissions director at [facility], so I called [facility] [place] and spoke to urologist,Dr Carrillo admissions director for Dr Ibarra and he agreed to get CT abdomen/pelvis and Scrotal US and to get in touch with them yesterday morning with report and for transfer to [place] if the pt is not getting better. Pt is better and awake and alert and no longer in pains, though his appetite is still poor was put on Glucerna. The Scrotal US report was normal and CT abdomen/pelvis showed no abnormality in abdomen/pelvis except for pulmonary infiltrates and nodules. His BUN/Cr is 68/ 1.8 today. Physical Exam Vital Signs: Temp Pulse Resp BP Pulse Ox 98.6 F 82 22 H 144/62 H 96 12/26/16 11:45 12/26/16 14:00 12/26/16 11:45 12/26/16 11:45 12/26/16 11:45 Intake & Output 12/25/16 12/26/16 12/27/16 06:59 06:59 06:59 Intake Total 3816 4430 Output Total 2750 2800 Balance 1066 1630 Weight 92.8 kg General appearance: PRESENT: no acute distress, cooperative, well-developed, well-nourished Head exam: PRESENT: atraumatic, normocephalic Eye exam: PRESENT: EOMI, PERRLA Ear exam: PRESENT: normal external ear exam, TM's normal bilaterally Mouth exam: PRESENT: neck supple, tongue midline Respiratory exam: PRESENT: clear to auscultation marino, symmetrical Cardiovascular exam: PRESENT: +S1, +S2 Pulses: PRESENT: +2 pedal pulses bilateral GI/Abdominal exam: PRESENT: normal bowel sounds, soft Rectal exam: PRESENT: deferred Neurological exam: PRESENT: alert, awake, oriented to person, oriented to place Psychiatric exam: PRESENT: normal mood Results Laboratory Results: 12/26/16 05:23 12/26/16 05:23 12/26/16 12/26/16 05:23 05:23 WBC 6.0 RBC 3.80 L Hgb 11.5 L Hct 34.4 L MCV 90 MCH 30.2 MCHC 33.4 RDW 13.4 Plt Count 126 L Seg Neutrophils % Not Reportable Lymphocytes % Not Reportable Monocytes % Not Reportable Eosinophils % Not Reportable Basophils % Not Reportable Absolute Neutrophils Not Reportable Absolute Lymphocytes Not Reportable Absolute Monocytes Not Reportable Absolute Eosinophils Not Reportable Absolute Basophils Not Reportable Sodium 136.6 L Potassium 4.7 Chloride 109 H Carbon Dioxide 21 L Anion Gap 7 BUN 68 H Creatinine 1.81 H Est GFR ( Amer) 46 L Est GFR (Non-Af Amer) 38 L Glucose 44 L Calcium 8.3 L Total Bilirubin 0.6 AST 122 H ALT 133 H Alkaline Phosphatase 290 H Total Protein 5.7 L Albumin 2.3 L 12/24/16 01:15 Catheterized Urine Urine Culture - Final NO GROWTH 2 DAYS Impressions: Chest X-Ray 12/23/16 17:22 IMPRESSION: BILATERAL LOWER LOBE AIRSPACE DISEASE WITH TRACE BILATERAL PLEURAL EFFUSIONS. MAIN DIFFERENTIAL INCLUDES SUBSEGMENTAL ATELECTASIS, ASPIRATION, OR PNEUMONIA. RECOMMEND FOLLOWUP RADIOGRAPHS 4 TO 6 WEEKS TO ENSURE RESOLUTION. Renal Ultrasound 12/23/16 19:30 IMPRESSION: Limited study as noted above. No significant renal abnormalities were identified Abdomen/Pelvis CT 12/24/16 00:00 IMPRESSION: 1. No acute abdominopelvic abnormality appreciated. Postoperative changes related to recent penile implant placement. No drainable collections. 2. Right renal atrophy. 3. Basilar pulmonary changes suggesting pneumonia. There are, however, also some pulmonary nodules. While this could also be infectious/ inflammatory, neoplasm is in the differential. Therefore surveillance followup CT chest imaging is recommended once the patient has been appropriately treated for pneumonia. Scrotum Ultrasound 12/24/16 00:00 IMPRESSION: No evidence of testicular torsion or mass. Potential mild left varicocele. Assessment & Plan - Diagnosis (1) Acute kidney injury Is this a current diagnosis for this admission?: Yes Plan: He had 3 Liters of normal saline at ER; we will ct him with Normal saline at 125 cc/hr; Avoid nephrotoxics; strict input/output chart; daily weight; We will hold metformin and Lisinopril/HCTZ for now.Monitor chemistries daily.Renal US showed no obstructive uropathy. (2) Pneumonia Qualifiers: Pneumonia type: due to unspecified organism Laterality: bilateral Lung location: lower lobe of lung Qualified Code(s): J18.9 - Pneumonia, unspecified organism Is this a current diagnosis for this admission?: Yes Plan: Ct with Oxygen by N/C at 2 L/min; Rocephin 1 g daily IV; Azithromycin 500 mg qd IV; Tylenol 650 mg q4h prn po; Duonebs q6h prn; F/u Bloodand sputum cultures. (3) Scrotal edema Is this a current diagnosis for this admission?: Yes Plan: Ct with scrotal elevation; ct with Morphine 4 mg q4h IV prn; Zofran 4 mg q4h IV prn; F/u CT abdomen/Pelvis and Scrotal US reports. F/u urologist, Dr Carrillo/ [facility] in [place] (4) Diabetes mellitus type 2 in obese Is this a current diagnosis for this admission?: Yes Plan: Ct with Glipizide 10 mg BID po; Invokana 300 mg qd po; Hold Metformin 1000mg BID ; accucheck qac, qhs with slidding scale with humalog insulin [facility] protocol; 1800calorie ADA diet. (5) Diabetic neuropathy Qualifiers: Diabetes mellitus type: type 2 Diabetes mellitus complication detail: diabetic polyneuropathy Qualified Code(s): E11.42 - Type 2 diabetes mellitus with diabetic polyneuropathy Is this a current diagnosis for this admission?: Yes Plan: Ct with Gabapentin 100 mg BID po. (6) Hypertension Qualifiers: Hypertension type: essential hypertension Qualified Code(s): I10 - Essential (primary) hypertension Is this a current diagnosis for this admission?: Yes Plan: Ct with Hydralazine 50 mg TID po; Hold Lisinopril/HCTZ due to acute kidney injury with hyperkalemia.Ct with 2 g sodium diet. (7) Hyperlipidemia Qualifiers: Hyperlipidemia type: mixed hyperlipidemia Qualified Code(s): E78.2 - Mixed hyperlipidemia Is this a current diagnosis for this admission?: Yes Plan: Ct with Simvastatin 20 mg qhs po; 200 mg cholesterol diet. (8) PAD (peripheral artery disease) Is this a current diagnosis for this admission?: Yes Plan: Ct with ASA 81 mg qd; cardiac diet. (9) Lumbago Qualifiers: Chronicity: unspecified Is this a current diagnosis for this admission?: Yes Plan: Ct with Percocet 5/325 1 q6h prn po. (10) DVT prophylaxis Is this a current diagnosis for this admission?: Yes Plan: Ct with Heparin 5000iu q8h subcut; SCD.
[2016-12-26] MEDS: SIMVASTATIN 10 MG TABLET PO SCH (21:45)
[2016-12-26] MEDS: ZOLPIDEM TARTRATE 5 MG TABLET PO PRN (22:33)
[2016-12-27 05:43] LABS: HEMATOCRIT 34.9 % (37.9-51.0); HEMOGLOBIN 11.8 g/dL (13.5-17.0); HGB HCT DIFFERENCE 0.5; MEAN CORPUSCULAR HEMOGLOBIN 30.4 pg (27.0-33.4); MEAN CORPUSCULAR HGB CONC 33.7 g/dL (32.0-36.0); MEAN CORPUSCULAR VOLUME 90 fl (80-97); RED BLOOD COUNT 3.87 10^6/uL (4.35-5.55); RED CELL DISTRIBUTION WIDTH 13.3 % (11.5-14.0)
[2016-12-27 05:53] LABS: ALANINE AMINOTRANSFERASE 114 U/L (21-72); ALBUMIN 2.2 g/dL (3.5-5.0); ALKALINE PHOSPHATASE 287 U/L (38-126); ANION GAP 7 (5-19); ASPARTATE AMINO TRANSFERASE 73 U/L (17-59); BILIRUBIN,DIRECT 0.5 mg/dL (0.0-0.4); BILIRUBIN,TOTAL 0.6 mg/dL (0.2-1.3); CALCIUM 8.7 mg/dL (8.4-10.2); CARBON DIOXIDE 21 mmol/L (22-30); CHLORIDE 109 mmol/L (98-107); CREATININE RESULT 1.29 mg/dL (0.52-1.25); GLUCOSE 72 mg/dL (75-110); MAGNESIUM 2.3 mg/dL (1.6-2.3); POTASSIUM 4.7 mmol/L (3.6-5.0); SODIUM 136.8 mmol/L (137-145); TOTAL PROTEIN 5.7 g/dL (6.3-8.2)
[2016-12-27 06:12] LABS: BLOOD UREA NITROGEN 47 mg/dL (7-20)
[2016-12-27 06:13] LABS: BASOPHILS % (MANUAL) 0 % (0-2); EOSINOPHILS % (MANUAL) 3 % (0-6); LYMPHOCYTES % (MANUAL) 8 % (13-45); TOTAL CELLS COUNTED 100
[2016-12-27 06:14] LABS: ROULEAUX 2+
[2016-12-27] MEDS: HYDRALAZINE HCL 50 MG TABLET PO SCH ×3 (06:21→22:39)
[2016-12-27] MEDS: HEPARIN SOD (PORCINE) 5,000 UNIT/ML 1 ML SYRINGE SUBCUT SCH ×3 (06:21→22:39)
[2016-12-27] MEDS: LANSOPRAZOLE 30 MG TAB.RAP.DR PO SCH (06:21)
[2016-12-27] MEDS: MORPHINE SULFATE 10 MG/ML INJ IV PRN (08:05)
[2016-12-27] MEDS: NORMAL SALINE 1000 ML 1,000 ML IV PRN (08:15)
[2016-12-27] MEDS ORDERED: BISACODYL 10 MG SUPP.RECT PR ONE (08:49)
[2016-12-27] MEDS ORDERED: POLYETHYLENE GLYCOL 3350 POWDER 17 GM/1 PACKET PO PRN (08:50)
[2016-12-27] MEDS: GABAPENTIN 100 MG CAPSULE PO SCH ×2 (10:40→17:44)
[2016-12-27] MEDS: AZITHROMYCIN 500 MG in DEXTROSE 5%-WATER 250 ML IV SCH (10:40)
[2016-12-27] MEDS: DOCUSATE SODIUM 100 MG CAPSULE PO SCH ×2 (10:41→17:44)
[2016-12-27] MEDS: OXYCODONE-ACETAMINOPHEN 5-325 MG TABLET PO PRN ×2 (10:41→17:44)
[2016-12-27] MEDS: ASPIRIN 81 MG TABLET, CHEWABLE PO SCH (10:42)
[2016-12-27] MEDS: NA PHOS,M-B/NA PHOS,DI-BA (ADULT) 133 ML ENEMA PR PRN (11:24)
--- NOTE | 2016-12-27 12:58 | PDOC PROGRESS REPORT ---
Subjective Progress Note for:: 12/27/16 Subjective:: Patient is seen on morning rounds. He is resting in bed. He states he is feeling better. He still has some moderate pain in his scrotum and abdomen. He is complaining of being constipated. He has not had a bowel movement in over a week. He is taking narcotic analgesics as well. He denies any shortness of breath, dyspnea or chest pain. He denies any other symptoms at the present time Physical Exam Vital Signs: Temp Pulse Resp BP Pulse Ox 99.2 F 78 20 114/58 L 96 12/27/16 11:22 12/27/16 11:22 12/27/16 11:22 12/27/16 11:22 12/27/16 11:22 Intake & Output 12/26/16 12/27/16 12/28/16 06:59 06:59 06:59 Intake Total 4430 2895 300 Output Total 2800 3850 800 Balance 1630 -955 -500 General appearance: PRESENT: no acute distress, well-developed, well-nourished Head exam: PRESENT: atraumatic, normocephalic Eye exam: PRESENT: conjunctiva pink, EOMI, PERRLA. ABSENT: scleral icterus Ear exam: PRESENT: normal external ear exam Mouth exam: PRESENT: moist, tongue midline Neck exam: ABSENT: carotid bruit, JVD, lymphadenopathy, thyromegaly Respiratory exam: PRESENT: clear to auscultation marino. ABSENT: rales, rhonchi, wheezes Cardiovascular exam: PRESENT: RRR. ABSENT: diastolic murmur, rubs, systolic murmur Pulses: PRESENT: normal dorsalis pedis pul GI/Abdominal exam: PRESENT: diminished bowel sounds, firm, soft Rectal exam: PRESENT: deferred Gentrourinary exam: PRESENT: ecchymosis, scrotal swelling - nursing reports it is improving Extremities exam: PRESENT: full ROM. ABSENT: calf tenderness, clubbing, pedal edema Musculoskeletal exam: PRESENT: ambulatory, full ROM Neurological exam: PRESENT: alert, awake, oriented to person, oriented to place , oriented to time, oriented to situation, CN II-XII grossly intact. ABSENT: motor sensory deficit Psychiatric exam: PRESENT: appropriate affect, normal mood. ABSENT: homicidal ideation, suicidal ideation Skin exam: PRESENT: dry, intact, warm Results Laboratory Results: 12/27/16 05:13 12/27/16 05:13 12/27/16 12/27/16 05:13 05:13 WBC 5.0 RBC 3.87 L Hgb 11.8 L Hct 34.9 L MCV 90 MCH 30.4 MCHC 33.7 RDW 13.3 Plt Count 145 L Seg Neutrophils % Not Reportable Lymphocytes % Not Reportable Monocytes % Not Reportable Eosinophils % Not Reportable Basophils % Not Reportable Absolute Neutrophils Not Reportable Absolute Lymphocytes Not Reportable Absolute Monocytes Not Reportable Absolute Eosinophils Not Reportable Absolute Basophils Not Reportable Sodium 136.8 L Potassium 4.7 Chloride 109 H Carbon Dioxide 21 L Anion Gap 7 BUN 47 H D Creatinine 1.29 H Est GFR ( Amer) > 60 Est GFR (Non-Af Amer) 56 L Glucose 72 L Calcium 8.7 Magnesium 2.3 Total Bilirubin 0.6 AST 73 H ALT 114 H Alkaline Phosphatase 287 H Total Protein 5.7 L Albumin 2.2 L 12/24/16 01:15 Catheterized Urine Urine Culture - Final NO GROWTH 2 DAYS Impressions: Chest X-Ray 12/23/16 17:22 IMPRESSION: BILATERAL LOWER LOBE AIRSPACE DISEASE WITH TRACE BILATERAL PLEURAL EFFUSIONS. MAIN DIFFERENTIAL INCLUDES SUBSEGMENTAL ATELECTASIS, ASPIRATION, OR PNEUMONIA. RECOMMEND FOLLOWUP RADIOGRAPHS 4 TO 6 WEEKS TO ENSURE RESOLUTION. Renal Ultrasound 12/23/16 19:30 IMPRESSION: Limited study as noted above. No significant renal abnormalities were identified Abdomen/Pelvis CT 12/24/16 00:00 IMPRESSION: 1. No acute abdominopelvic abnormality appreciated. Postoperative changes related to recent penile implant placement. No drainable collections. 2. Right renal atrophy. 3. Basilar pulmonary changes suggesting pneumonia. There are, however, also some pulmonary nodules. While this could also be infectious/ inflammatory, neoplasm is in the differential. Therefore surveillance followup CT chest imaging is recommended once the patient has been appropriately treated for pneumonia. Scrotum Ultrasound 12/24/16 00:00 IMPRESSION: No evidence of testicular torsion or mass. Potential mild left varicocele. Assessment & Plan - Diagnosis (1) Pneumonia Qualifiers: Pneumonia type: due to unspecified organism Laterality: bilateral Lung location: lower lobe of lung Qualified Code(s): J18.9 - Pneumonia, unspecified organism Is this a current diagnosis for this admission?: Yes Plan: Continue current antibiotic therapy (2) Acute kidney injury Is this a current diagnosis for this admission?: Yes Plan: Improved with hydration. Will discontinue fluid after this bag is complete (3) Diabetes mellitus type 2 in obese Is this a current diagnosis for this admission?: Yes Plan: Continue current medications (4) Diabetic neuropathy Qualifiers: Diabetes mellitus type: type 2 Diabetes mellitus complication detail: diabetic polyneuropathy Qualified Code(s): E11.42 - Type 2 diabetes mellitus with diabetic polyneuropathy Is this a current diagnosis for this admission?: Yes (5) Hypertension Qualifiers: Hypertension type: essential hypertension Qualified Code(s): I10 - Essential (primary) hypertension Is this a current diagnosis for this admission?: Yes Plan: Presently normotensive (6) PAD (peripheral artery disease) Is this a current diagnosis for this admission?: Yes (7) Scrotal edema Is this a current diagnosis for this admission?: Yes Plan: Improving secondary to surgery. Ultrasound is unremarkable - Time Time Spent with patient: 25-34 minutes Critical Time spent with patient: 15-24 minutes Medications reviewed and adjusted accordingly: Yes Anticipated discharge: Acute Rehab Within: when bed available
[2016-12-27] MEDS: ZOLPIDEM TARTRATE 5 MG TABLET PO PRN (22:38)
[2016-12-27] MEDS: SIMVASTATIN 10 MG TABLET PO SCH (22:38)
[2016-12-28] MEDS: LANSOPRAZOLE 30 MG TAB.RAP.DR PO SCH (06:40)
[2016-12-28] MEDS: HYDRALAZINE HCL 50 MG TABLET PO SCH ×3 (06:41→22:16)
[2016-12-28] MEDS: HEPARIN SOD (PORCINE) 5,000 UNIT/ML 1 ML SYRINGE SUBCUT SCH ×3 (06:41→23:33)
--- NOTE | 2016-12-28 09:09 | PDOC PROGRESS REPORT ---
Subjective Progress Note for:: 12/28/16 Subjective:: Patient is seen on morning rounds. He is resting in bed. He states he is feeling better. He still has some moderate pain in his scrotum and abdomen. He did have a bowel movement yesterday finally. He is taking narcotic analgesics as well. He denies any shortness of breath, dyspnea or chest pain. He denies any other symptoms at this time Physical Exam Vital Signs: Temp Pulse Resp BP Pulse Ox 98.4 F 83 20 136/69 H 93 12/28/16 08:12 12/28/16 08:12 12/28/16 08:12 12/28/16 08:12 12/28/16 08:12 Intake & Output 12/27/16 12/28/16 12/29/16 06:59 06:59 06:59 Intake Total 2895 2200 Output Total 3850 4100 Balance -955 -1900 Weight 102.1 kg General appearance: PRESENT: no acute distress, obese, well-developed, well- nourished Head exam: PRESENT: atraumatic, normocephalic Eye exam: PRESENT: conjunctiva pink, EOMI, PERRLA. ABSENT: scleral icterus Ear exam: PRESENT: normal external ear exam Mouth exam: PRESENT: moist, tongue midline Neck exam: ABSENT: carotid bruit, JVD, lymphadenopathy, thyromegaly Respiratory exam: PRESENT: clear to auscultation marino. ABSENT: rales, rhonchi, wheezes Cardiovascular exam: PRESENT: RRR. ABSENT: diastolic murmur, rubs, systolic murmur Pulses: PRESENT: normal dorsalis pedis pul Vascular exam: PRESENT: normal capillary refill GI/Abdominal exam: PRESENT: normal bowel sounds, soft Rectal exam: PRESENT: deferred Gentrourinary exam: PRESENT: scrotal swelling, other - echymosis Extremities exam: PRESENT: full ROM. ABSENT: calf tenderness, clubbing, pedal edema Musculoskeletal exam: PRESENT: ambulatory, full ROM, normal inspection Neurological exam: PRESENT: alert, awake, oriented to person, oriented to place , oriented to time, oriented to situation, CN II-XII grossly intact, normal gait Psychiatric exam: PRESENT: appropriate affect, normal mood. ABSENT: homicidal ideation, suicidal ideation Skin exam: PRESENT: dry, intact, warm. ABSENT: cyanosis, rash Results Laboratory Results: 12/27/16 05:13 12/27/16 05:13 Impressions: Chest X-Ray 12/23/16 17:22 IMPRESSION: BILATERAL LOWER LOBE AIRSPACE DISEASE WITH TRACE BILATERAL PLEURAL EFFUSIONS. MAIN DIFFERENTIAL INCLUDES SUBSEGMENTAL ATELECTASIS, ASPIRATION, OR PNEUMONIA. RECOMMEND FOLLOWUP RADIOGRAPHS 4 TO 6 WEEKS TO ENSURE RESOLUTION. Renal Ultrasound 12/23/16 19:30 IMPRESSION: Limited study as noted above. No significant renal abnormalities were identified Abdomen/Pelvis CT 12/24/16 00:00 IMPRESSION: 1. No acute abdominopelvic abnormality appreciated. Postoperative changes related to recent penile implant placement. No drainable collections. 2. Right renal atrophy. 3. Basilar pulmonary changes suggesting pneumonia. There are, however, also some pulmonary nodules. While this could also be infectious/ inflammatory, neoplasm is in the differential. Therefore surveillance followup CT chest imaging is recommended once the patient has been appropriately treated for pneumonia. Scrotum Ultrasound 12/24/16 00:00 IMPRESSION: No evidence of testicular torsion or mass. Potential mild left varicocele. Assessment & Plan - Diagnosis (1) Pneumonia Qualifiers: Pneumonia type: due to unspecified organism Laterality: bilateral Lung location: lower lobe of lung Qualified Code(s): J18.9 - Pneumonia, unspecified organism Is this a current diagnosis for this admission?: Yes Plan: Continue current antibiotic therapy (2) Acute kidney injury Is this a current diagnosis for this admission?: Yes Plan: Improved with hydration. Will discontinue fluid after this bag is complete (3) Diabetes mellitus type 2 in obese Is this a current diagnosis for this admission?: Yes Plan: Continue current medications (4) Diabetic neuropathy Qualifiers: Diabetes mellitus type: type 2 Diabetes mellitus complication detail: diabetic polyneuropathy Qualified Code(s): E11.42 - Type 2 diabetes mellitus with diabetic polyneuropathy Is this a current diagnosis for this admission?: Yes (5) Hypertension Qualifiers: Hypertension type: essential hypertension Qualified Code(s): I10 - Essential (primary) hypertension Is this a current diagnosis for this admission?: Yes Plan: Presently normotensive (6) PAD (peripheral artery disease) Is this a current diagnosis for this admission?: Yes (7) Scrotal edema Is this a current diagnosis for this admission?: Yes Plan: Improving secondary to surgery. Ultrasound is unremarkable - Time Time Spent with patient: 25-34 minutes Critical Time spent with patient: 15-24 minutes Medications reviewed and adjusted accordingly: Yes
[2016-12-28] MEDS: DOCUSATE SODIUM 100 MG CAPSULE PO SCH ×2 (09:35→18:00)
[2016-12-28] MEDS: ASPIRIN 81 MG TABLET, CHEWABLE PO SCH (09:35)
[2016-12-28] MEDS: GABAPENTIN 100 MG CAPSULE PO SCH ×2 (09:35→18:01)
[2016-12-28] MEDS: AZITHROMYCIN 500 MG in DEXTROSE 5%-WATER 250 ML IV SCH (09:35)
[2016-12-28 10:06] LABS: ANION GAP 7 (5-19); BLOOD UREA NITROGEN 36 mg/dL (7-20); CALCIUM 9.2 mg/dL (8.4-10.2); CARBON DIOXIDE 23 mmol/L (22-30); CHLORIDE 107 mmol/L (98-107); CREATININE RESULT 1.13 mg/dL (0.52-1.25); GLUCOSE 141 mg/dL (75-110); POTASSIUM 4.8 mmol/L (3.6-5.0); SODIUM 136.9 mmol/L (137-145)
[2016-12-28] MEDS: MORPHINE SULFATE 10 MG/ML INJ IV PRN ×3 (11:53→22:16)
[2016-12-28] MEDS: INSULIN LISPRO 100 UNIT/ML 3 ML VIAL SUBCUT PRN (13:04)
[2016-12-28] MEDS: OXYCODONE-ACETAMINOPHEN 5-325 MG TABLET PO PRN ×2 (13:10→19:39)
[2016-12-28] MEDS: NA PHOS,M-B/NA PHOS,DI-BA (ADULT) 133 ML ENEMA PR PRN (19:02)
[2016-12-28] MEDS: SIMVASTATIN 10 MG TABLET PO SCH (22:17)
[2016-12-28] MEDS: ZOLPIDEM TARTRATE 5 MG TABLET PO PRN (22:24)
[2016-12-29] MEDS: OXYCODONE-ACETAMINOPHEN 5-325 MG TABLET PO PRN (04:16)
[2016-12-29] MEDS: HYDRALAZINE HCL 50 MG TABLET PO SCH (05:35)
[2016-12-29] MEDS: LANSOPRAZOLE 30 MG TAB.RAP.DR PO SCH (05:36)
[2016-12-29] MEDS: HEPARIN SOD (PORCINE) 5,000 UNIT/ML 1 ML SYRINGE SUBCUT SCH (07:13)
[2016-12-29] MEDS: NA PHOS,M-B/NA PHOS,DI-BA (ADULT) 133 ML ENEMA PR PRN (09:19)
[2016-12-29] MEDS: ASPIRIN 81 MG TABLET, CHEWABLE PO SCH (09:29)
[2016-12-29] MEDS: GABAPENTIN 100 MG CAPSULE PO SCH (09:29)
[2016-12-29] MEDS: DOCUSATE SODIUM 100 MG CAPSULE PO SCH (09:29)
[2016-12-29] MEDS: AZITHROMYCIN 500 MG in DEXTROSE 5%-WATER 250 ML IV SCH (09:29)
--- NOTE | 2016-12-29 12:47 | PDOC DISCHARGE SUMMARY ---
General - Admit/Disc Date/PCP Admission Date/Primary Care Provider: 12/23/16 22:34 Discharge Date: 12/29/16 - Discharge Diagnosis (1) Acute kidney injury Is this a current diagnosis for this admission?: Yes (2) Pneumonia Is this a current diagnosis for this admission?: Yes (3) Scrotal edema Is this a current diagnosis for this admission?: Yes (4) Diabetes mellitus type 2 in obese Is this a current diagnosis for this admission?: Yes (5) Diabetic neuropathy Is this a current diagnosis for this admission?: Yes (6) Hypertension Is this a current diagnosis for this admission?: Yes (7) Hyperlipidemia Is this a current diagnosis for this admission?: Yes (8) PAD (peripheral artery disease) Is this a current diagnosis for this admission?: Yes (9) Lumbago Is this a current diagnosis for this admission?: Yes (10) DVT prophylaxis Is this a current diagnosis for this admission?: Yes - Additional Information Discharge Activity: Activity As Tolerated Home Medications: Aspirin [Aspirin 81 mg Chewable Tablet] 81 mg PO QHS 03/13/15 Metformin HCl [Glucophage] 1,000 mg PO BIDACBS 03/13/15 Canagliflozin [Invokana] 300 mg PO QHS 12/23/16 Gabapentin 100 mg PO Q12 12/23/16 Hydralazine HCl 50 mg PO Q8 12/23/16 Lisinopril/Hydrochlorothiazide [Lisinopril-Hctz 20-25 mg Tab] 1 tab PO QHS 12/23 Oxycodone HCl/Acetaminophen [Oxycodone-Acetaminophen 5-325] 1 tab PO Q6HP PRN Simvastatin [Zocor 20 mg Tablet] 20 mg PO QHS 12/23/16 Sulfamethoxazole/Trimethoprim [Bactrim Ds Tablet] 1 tab PO BID 12/23/16 Glipizide [Glucotrol 10 mg Tablet] 10 mg PO BIDACBS 12/24/16 Oxycodone HCl/Acetaminophen [Percocet 5-325 mg Tablet] 1 tab PO Q6HP PRN #90 tablet 12/29/16 Polyethylene Glycol 3350 [Miralax Powder 17 gm/Packet] 17 gm PO DAILYP PRN #39 powd.pack 12/29/16 History of Present Illness History of Present Illness: VIVIAN FARR is a 66 year old male with hx of DM2/DM neuropathy/HTN/ Hyperlipidemia/PAD s.p right leg angioplasty/Arryhythmias/Back pain/Elevated PSA /ED/Obesity who had penile implant in [place] [employer] on 12/19/2016. He has been having decreased appetite, decreased oral intake, weakness, cough and some wheezes since after the procedure. On account of the worsening of the symptoms, he was brought to ER by his daughter. His oxygen saturation was 89% on RA at ER.His BUN /Cr was 94/4.3 compared to 33/1.28 on 12/08/2016 prior to the procedure. Hospital Course Hospital Course: 66 yr old man who was admitted for community acquired pneumonia, acute kidney kidney injury-resolved and scrotal edema following penile implant by urologist, Dr Ibarra in [place]. He was admitted at [facility] and we got CT renal US- no obstructive uropathy; CT abdomen/pelvis without contrast- no significant abdominal/pelvic abnormality except pulmonary infiltrates and pulmonary nodules.We had him on IV fluids , IV antibiotics, IV analgesics.We also discussed the case with urologist, Dr Carrillo in [place] who was covering for Dr Ibarra since we did not have urologist healthcare risk control consultant then. His kidney function is back to normal and he is back to his baseline. He will be discharged home today to follow with his urologist, Dr Ibarra and his PCP, Dr Nina within 1 week. Physical Exam Vital Signs: Temp Pulse Resp BP Pulse Ox 97.8 F 79 18 150/61 H 94 12/29/16 11:31 12/29/16 11:31 12/29/16 11:31 12/29/16 11:31 12/29/16 11:31 Intake & Output 12/28/16 12/29/16 12/30/16 06:59 06:59 06:59 Intake Total 2200 1566 Output Total 4100 3750 Balance -1900 -2184 Weight 102.1 kg 101.3 kg General appearance: PRESENT: no acute distress, cooperative, well-developed, well-nourished Head exam: PRESENT: atraumatic, normocephalic Eye exam: PRESENT: EOMI, PERRLA Ear exam: PRESENT: normal external ear exam, TM's normal bilaterally Mouth exam: PRESENT: neck supple, tongue midline Respiratory exam: PRESENT: clear to auscultation marino, symmetrical Cardiovascular exam: PRESENT: +S1, +S2 Pulses: PRESENT: +2 pedal pulses bilateral GI/Abdominal exam: PRESENT: normal bowel sounds, soft Rectal exam: PRESENT: deferred Gentrourinary exam: PRESENT: scrotal swelling Neurological exam: PRESENT: alert, awake, oriented to person, oriented to place , oriented to time Psychiatric exam: PRESENT: normal mood Results Laboratory Results: 12/27/16 05:13 12/28/16 09:20 Impressions: Chest X-Ray 12/23/16 17:22 IMPRESSION: BILATERAL LOWER LOBE AIRSPACE DISEASE WITH TRACE BILATERAL PLEURAL EFFUSIONS. MAIN DIFFERENTIAL INCLUDES SUBSEGMENTAL ATELECTASIS, ASPIRATION, OR PNEUMONIA. RECOMMEND FOLLOWUP RADIOGRAPHS 4 TO 6 WEEKS TO ENSURE RESOLUTION. Renal Ultrasound 12/23/16 19:30 IMPRESSION: Limited study as noted above. No significant renal abnormalities were identified Abdomen/Pelvis CT 12/24/16 00:00 IMPRESSION: 1. No acute abdominopelvic abnormality appreciated. Postoperative changes related to recent penile implant placement. No drainable collections. 2. Right renal atrophy. 3. Basilar pulmonary changes suggesting pneumonia. There are, however, also some pulmonary nodules. While this could also be infectious/ inflammatory, neoplasm is in the differential. Therefore surveillance followup CT chest imaging is recommended once the patient has been appropriately treated for pneumonia. Scrotum Ultrasound 12/24/16 00:00 IMPRESSION: No evidence of testicular torsion or mass. Potential mild left varicocele.
[2016-12-29 14:45] VITALS: BP 143/66
== END 2016-12-29 16:00 | disposition home health service (06) | DRG 682 ==
LOC: ER 16:12 → EH 19:51 → UNDOADMIN 19:51 → EH 22:34 → 3S 23:40 → EH 23:40
PROVIDERS: ADMIT Internal Medicine; ATTEND Internal Medicine
DX: N17.9 Acute kidney failure, unspecified (principal); J18.9 Pneumonia, unspecified organism; N50.89 Other specified disorders of the male genital organs; E11.40 Type 2 diabetes mellitus with diabetic neuropathy, unspecified; I10 Essential (primary) hypertension; I25.10 Atherosclerotic heart disease of native coronary artery without angina pectoris; E11.51 Type 2 diabetes mellitus with diabetic peripheral angiopathy without gangrene; E78.5 Hyperlipidemia, unspecified; M54.5 Low back pain; Z79.82 Long term (current) use of aspirin; Z79.84 Long term (current) use of oral hypoglycemic drugs; Z79.899 Other long term (current) drug therapy; Z88.0 Allergy status to penicillin
CPT/HCPCS: 36415; 71020; 74176; 76775; 76870; 80048; 80053; 80061; 81001; 82803; 82962; 83036; 83605; 83735; 84443; 85025; 85610; 87040; 87086; 93005; 93010; 93976; 94640; 96365; 99285; G8978-GP; G8979-GP; J0456; J1644; J1815; J1956; J2270; J7030; J7060

== ENCOUNTER 2017-08-13 07:59 | Day surgery (SDC) | payer MEDICARE ==
[~2017-08-13 07:59] MED LIST: BUPIVACAINE HCL 0.75% INJ/PF (7.5 MG/1 ML) 10 ML SDV OD PRN; CHONDR SU A NA/HYALUR INTRAOC KIT (SURGICARE) ONE; EPINEPHRINE INJ/PF 1 MG/1 ML AMPULE ONE; KETOROLAC TROMETHAMINE 0.45% 4 DROP/0.4 ML DROPERETTE OD PRN; LIDOCAINE 1% INJ-PF (10 MG/ML) 30 ML SDV ONE
[2017-08-13] MEDS: TROPICAMIDE 1% OPH SOLN 3 ML OD PRN ×3 (08:35→08:55)
[2017-08-13] MEDS: BESIFLOXACIN HCL 0.6% OPH SUSP 5 ML BOTTLE OD PRN ×2 (08:35→08:55)
[2017-08-13] MEDS: CYCLOPENTOLATE 0.2%/PHENYLEPHRINE 1% OPH SOLN 2 ML OD PRN ×3 (08:35→08:55)
[2017-08-13] MEDS: TETRACAINE HCL 0.5% OPH SOLN 2 ML OD PRN ×2 (08:36→08:55)
[2017-08-13] MEDS ORDERED: MIDAZOLAM 2 MG/2 ML INJ ONE ×2 (08:51)
[2017-08-13] MEDS ORDERED: FENTANYL CITRATE INJ/PF 100 MCG/2 ML AMPUL ONE (08:51)
== END 2017-08-13 09:23 | disposition home or self-care (01) ==
LOC: SC 07:59
PROVIDERS: ATTEND Internal Medicine
DX: H25.811 Combined forms of age-related cataract, right eye (principal)
CPT/HCPCS: J0171; J2250; J3010; J3490

== ENCOUNTER 2017-09-03 08:10 | Day surgery (SDC) | payer MEDICARE ==
[~2017-09-03 08:10] MED LIST changes: -BUPIVACAINE HCL 0.75% INJ/PF (7.5 MG/1 ML) 10 ML SDV OD PRN; -CHONDR SU A NA/HYALUR INTRAOC KIT (SURGICARE) ONE; -EPINEPHRINE INJ/PF 1 MG/1 ML AMPULE ONE; -LIDOCAINE 1% INJ-PF (10 MG/ML) 30 ML SDV ONE
[2017-09-03] MEDS ORDERED: CHONDR SU A NA/HYALUR INTRAOC KIT (SURGICARE) ONE (08:31)
[2017-09-03] MEDS ORDERED: LIDOCAINE 1% INJ-PF (10 MG/ML) 30 ML SDV ONE (08:31)
[2017-09-03] MEDS ORDERED: EPINEPHRINE INJ/PF 1 MG/1 ML AMPULE ONE ×2 (08:31→09:09)
[2017-09-03] MEDS: TROPICAMIDE 1% OPH SOLN 3 ML OD PRN ×3 (08:45→09:15)
[2017-09-03] MEDS: CYCLOPENTOLATE 0.2%/PHENYLEPHRINE 1% OPH SOLN 2 ML OD PRN ×3 (08:45→09:15)
[2017-09-03] MEDS: BESIFLOXACIN HCL 0.6% OPH SUSP 5 ML BOTTLE OD PRN ×3 (08:46→09:45)
[2017-09-03] MEDS: TETRACAINE HCL 0.5% OPH SOLN 2 ML OD PRN ×3 (08:47→09:25)
[2017-09-03] MEDS ORDERED: MIDAZOLAM 2 MG/2 ML INJ ONE (09:08)
== END 2017-09-03 10:21 | disposition home or self-care (01) ==
LOC: SC 08:10
PROVIDERS: ATTEND Internal Medicine
DX: H25.813 Combined forms of age-related cataract, bilateral (principal); E11.3293 Type 2 diabetes mellitus with mild nonproliferative diabetic retinopathy without macular edema, bilateral; H11.153 Pinguecula, bilateral; I10 Essential (primary) hypertension; E11.9 Type 2 diabetes mellitus without complications; J45.909 Unspecified asthma, uncomplicated; E78.00 Pure hypercholesterolemia, unspecified; Z79.84 Long term (current) use of oral hypoglycemic drugs; Z79.899 Other long term (current) drug therapy; Z79.82 Long term (current) use of aspirin
CPT/HCPCS: 66984; 82962; V2632; J2250; J3490 ×2; A9270; J0171; 142

== ENCOUNTER 2017-09-24 08:26 | Day surgery (SDC) | payer MEDICARE ==
[~2017-09-24 08:26] MED LIST changes: +CHONDR SU A NA/HYALUR INTRAOC KIT (SURGICARE) ONE; +EPINEPHRINE INJ/PF 1 MG/1 ML AMPULE ONE; -KETOROLAC TROMETHAMINE 0.45% 4 DROP/0.4 ML DROPERETTE OD PRN; +KETOROLAC TROMETHAMINE 0.45% 4 DROP/0.4 ML DROPERETTE OS PRN; +LIDOCAINE 1% INJ-PF (10 MG/ML) 30 ML SDV ONE
[2017-09-24] MEDS: BESIFLOXACIN HCL 0.6% OPH SUSP 5 ML BOTTLE OS PRN ×3 (09:03→09:53)
[2017-09-24] MEDS: CYCLOPENTOLATE 0.2%/PHENYLEPHRINE 1% OPH SOLN 2 ML OS PRN ×3 (09:03→09:21)
[2017-09-24] MEDS: TETRACAINE HCL 0.5% OPH SOLN 2 ML OS PRN ×3 (09:03→09:33)
[2017-09-24] MEDS: TROPICAMIDE 1% OPH SOLN 3 ML OS PRN ×3 (09:03→09:21)
[2017-09-24] MEDS ORDERED: MIDAZOLAM 2 MG/2 ML INJ ONE ×2 (09:27→09:28)
[2017-09-24] MEDS ORDERED: FENTANYL CITRATE INJ/PF 100 MCG/2 ML AMPUL ONE (09:27)
--- NOTE | 2017-09-24 19:15 | DISCHARGE SUMMARY E ---
Discharge Summary NAME: VIVIAN FARR : 1950 AGE: 67Y ADMITTED: 09/24/2017 DISCHARGED: 09/24/2017 HOSPITAL COURSE: This is a 67-year-old male who underwent cataract extraction of the left eye. DIAGNOSIS: Cataract, left eye. He underwent surgery because he was having trouble reading small print. DISCHARGE INSTRUCTIONS: He is to be on a regular diet. No bending at his waist, no heavy lifting. He should use his Besivance, Ilevro, and Durezol at 3 p.m. and 8 p.m. and sleep with a rigid shield. I will see him for his 1 day postoperative tomorrow. DICTATING PHYSICIAN: LOIS CURRY M.D. [id number] PHY#: [id number] ID: [id number] JOB#: [id number] ACCT: [id number] cc:LOIS CURRY M.D. >
--- NOTE | 2017-09-24 19:15 | [facility] OPERATIVE REPORT E ---
[facility] Operative Report NAME: VIVIAN FARR AGE: 67Y DATE OF SURGERY: 09/24/2017 ROOM: PREOPERATIVE DIAGNOSIS: CATARACT, LEFT EYE. POSTOPERATIVE DIAGNOSIS: CATARACT, LEFT EYE. OPERATION: Cataract extraction with insertion of an IOL of the left eye. SURGEON: LOIS CURRY M.D. ANESTHESIA: Topical. PROCEDURE: After obtaining appropriate consent, the patient's left eye was prepped and draped in sterile fashion as well as the surgeon in a sterile manner and cataract surgery was started. First a paracentesis blade was used to make a side-port incision. Viscoelastic was used to inflate the anterior chamber. Next a 2.4 mm incision was made with a 2.4 mm blade, clear corneal temporally. A continuous capsulorrhexis was made using a cystotome and Utrata forceps. Following this hydrodissection was carried out to make the lens fully loose and mobile and it was rotated 90 degrees. Following this, a njsrrd-atb-jaluoab technique was used to phacoemulsify the lens with a CDE of 7.77. The remaining cortex was removed with irrigation/aspiration. Provisc was instilled into the capsular bag to inflate the bag. A SN60WF, 21.5 diopter lens was placed. The remaining viscoelastic material was removed with irrigation/aspiration. Following this, the incision was found to be watertight. Besivance was instilled into the eye and a protective shield was placed over the eye. The patient returned to the postoperative recovery in stable condition. DICTATING PHYSICIAN: LOIS CURRY M.D. [id number] PHY#: [id number] ID: [id number] JOB#: [id number] ACCT: [id number] cc:LOIS CURRY M.D. >
== END 2017-09-24 10:30 | disposition home or self-care (01) ==
LOC: SC 08:26
PROVIDERS: ATTEND Internal Medicine
DX: H25.812 Combined forms of age-related cataract, left eye (principal); Z96.1 Presence of intraocular lens; I10 Essential (primary) hypertension; E11.9 Type 2 diabetes mellitus without complications; Z88.0 Allergy status to penicillin; Z79.899 Other long term (current) drug therapy; Z79.82 Long term (current) use of aspirin
CPT/HCPCS: 66984; 82962; V2632; J2250; J3490 ×2; A9270; J0171; J3010; 142

== ENCOUNTER 2019-03-04 10:32 | Inpatient (IN) | payer MEDICARE ==
[2019-03-04] MEDS ORDERED: INFLUENZA QUAD (6MOS+) 2019-20 VAC 0.5 ML SYR IM ONE (11:31)
[2019-03-04] MEDS ORDERED: NORMAL SALINE 1000 ML 1,000 ML IV PRN (11:43)
[2019-03-04] MEDS ORDERED: ENOXAPARIN SODIUM INJ 40 MG/0.4 ML DISP.SYRIN SUBCUT SCH (12:45)
[2019-03-04] MEDS ORDERED: GLUCAGON,HUMAN RECOMB 1 MG INJ IM PRN (13:00)
[2019-03-04] MEDS ORDERED: DEXTROSE 50%-WATER SYRINGE 12.5 GM/25 ML DOSE IV PRN (13:00)
[2019-03-04] MEDS ORDERED: DEXTROSE 40% GEL 15 GM TUBE PO PRN (13:00)
[2019-03-04] MEDS ORDERED: VANCOMYCIN HCL 1,000 MG in DEXTROSE 5%-WATER 250 ML IV ONE (13:00)
[2019-03-04] MEDS ORDERED: DEXTROSE 40% GEL 15 GM TUBE X 2 PO PRN (13:00)
[2019-03-04] MEDS ORDERED: DEXTROSE 50%-WATER SYRINGE 25 GM/50 ML DOSE IV PRN (13:00)
[2019-03-04 14:07] LABS: ABSOLUTE LYMPHOCYTES (AUTO) 0.5 10^3/uL (0.5-4.7); ABSOLUTE NEUT (AUTO) 6.9 10^3/uL (1.7-8.2); BASOPHILS % (AUTO) 0.4 % (0-2); EOSINOPHILS % (AUTO) 0.4 % (0-6); HEMATOCRIT 36.8 % (37.9-51.0); HEMOGLOBIN 12.4 g/dL (13.5-17.0); MEAN CORPUSCULAR HEMOGLOBIN 30.7 pg (27.0-33.4); MEAN CORPUSCULAR HGB CONC 33.9 g/dL (32.0-36.0); MEAN CORPUSCULAR VOLUME 91 fl (80-97); MONOCYTES % (AUTO) 11.7 % (3-13); PLATELET COUNT 156 10^3/uL (150-450); RED BLOOD COUNT 4.06 10^6/uL (4.35-5.55); RED CELL DISTRIBUTION WIDTH 12.4 % (11.5-14.0); SEGMENTED NEUTROPHILS % (AUTO) 81.5 % (42-78); TOTAL CELLS COUNTED % (AUTO) 100 %; WHITE BLOOD COUNT 8.4 10^3/uL (4.0-10.5)
[2019-03-04] MEDS: ENOXAPARIN SODIUM INJ 40 MG/0.4 ML DISP.SYRIN SUBCUT SCH (14:11)
[2019-03-04 14:27] LABS: ALBUMIN 3.7 g/dL (3.5-5.0); ALKALINE PHOSPHATASE 55 U/L (38-126); ANION GAP 9 (5-19); ASPARTATE AMINO TRANSFERASE 23 U/L (17-59); BILIRUBIN,DIRECT 0.2 mg/dL (0.0-0.4); BILIRUBIN,TOTAL 0.4 mg/dL (0.2-1.3); BLOOD UREA NITROGEN 49 mg/dL (7-20); CARBON DIOXIDE 25 mmol/L (22-30); CHLORIDE 103 mmol/L (98-107); GLUCOSE 124 mg/dL (75-110)
[2019-03-04 14:29] LABS: INTERNATIONAL RATION (INR) 0.99; PROTHROMBIN TIME 13.1 SEC (11.4-15.4)
[2019-03-04 14:30] LABS: PARTIAL THROMBOPLASTIN TIME 37.3 SEC (23.5-35.8)
[2019-03-04 14:38] LABS: CREATINE KINASE MB 3.52 ng/mL (<4.55); TROPONIN I 0.017 ng/mL
[2019-03-04] MEDS: INSULIN LISPRO 100 UNIT/ML 3 ML VIAL SUBCUT SCH ×2 (16:51→21:19)
[2019-03-04] MEDS: DOXYCYCLINE HYCLATE 100 MG in DEXTROSE 5%-WATER 250 ML IV SCH (17:00)
[2019-03-04] MEDS: NORMAL SALINE 1000 ML 1,000 ML IV PRN (17:56)
--- NOTE | 2019-03-04 18:02 | PDOC H&P ---
History of Present Illness Admission Date/PCP: 03/04/19 10:32 ETELVINA LAMAR Patient complains of: Left hand swelling and 5th finger infection History of Present Illness: VIVIAN FARR is a 68 year old male known to my practice who presented 2 days ago with left hand redness with involvement of left 5th finger. He was diagnosed with left hand including finger cellulitis. In view of his medical morbidities and associated leukocytosis he was management with Bactrim DS 1 tablet p.o bid. Patient reported worsening of left hand swelling and redness with fluid formation around his lesion. Patient presented to the office today for further re-evaluation. He denied definite fever but felt chilled occasionally. He denied any trauma or instrumentation on the lesion. 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 His repeat CBC in the office revealed upward trend in his WBC that warrant direct admission to the hospital. His morbidities are as listed below. Past Medical History Cardiac Medical History: Reports: Coronary Artery Disease, Hyperlipidema, Hypertension - MEDICATED Denies: Myocardial Infarction Pulmonary Medical History: Reports: Asthma - NO MEDS Denies: Bronchitis, Chronic Obstructive Pulmonary Disease (COPD), Pneumonia Neurological Medical History: Denies: Seizures Endocrine Medical History: Reports: Diabetes Mellitus Type 2 GI Medical History: Denies: Hepatitis, Hiatal Hernia Musculoskeltal Medical History: Denies: Arthritis Hematology: Denies: Anemia, Sickle Cell Disease Past Surgical History Past Surgical History: Denies: Pacemaker Social History Smoking Status: Never Smoker Frequency of Alcohol Use: Rare Hx Recreational Drug Use: No Drugs: None Hx Prescription Drug Abuse: No - Advance Directive Resuscitation Status: Full Code Family History Family History: Reviewed & Not Pertinent Parental Family History Reviewed: Yes Children Family History Reviewed: Yes Sibling(s) Family History Reviewed.: Yes Medication/Allergy Home Medications: Ascorbic Acid [Vitamin C 500 mg Tablet] 500 mg PO DAILY 03/04/19 Aspirin [Aspirin 81 mg Chewable Tablet] 81 mg PO DAILY 03/04/19 Canagliflozin [Invokana] 300 mg PO DAILY 03/04/19 Gabapentin [Neurontin 300 mg Capsule] 300 mg PO Q8 03/04/19 Glipizide [Glocotrol 10 Mg Tablet] 10 mg PO Q12 03/04/19 Hydralazine HCl [Apresoline 50 mg Tablet] 50 mg PO Q8 03/04/19 Lisinopril/Hydrochlorothiazide [Lisinopril-Hctz 20-25 mg Tab] 1 each PO DAILY 03/04/19 Simvastatin [Zocor 20 mg Tablet] 20 mg PO DAILY 03/04/19 Sitagliptin Phos/Metformin HCl [Janumet 50-1,000 Mg Tablet] 1 each PO Q12 03/04/19 Sulfamethoxazole/Trimethoprim [Septra-Ds 800-160 mg Tablet] 1 tab PO Q12 03/04/19 Ubidecarenone [Coq-10] 100 mg PO DAILY 03/04/19 Allergies/Adverse Reactions: Penicillins Allergy (Severe, Verified 09/24/17 09:17) Anaphylaxis BEE STINGS Allergy (Severe, Uncoded 09/24/17 09:17) Anaphylaxis Review of Systems Constitutional: PRESENT: chills Eyes: ABSENT: visual disturbances Ears: ABSENT: hearing changes Nose, Mouth, and Throat: PRESENT: vertigo. ABSENT: headache(s), mouth pain Cardiovascular: ABSENT: chest pain, dyspnea on exertion, edema, orthropnea, palpitations Respiratory: PRESENT: as per HPI Gastrointestinal: ABSENT: abdominal pain, constipation, diarrhea, hematemesis, hematochezia, nausea, vomiting Genitourinary: ABSENT: difficulty urinating, dysuria, hematuria, nocturia Musculoskeletal: ABSENT: joint swelling Integumentary: PRESENT: as per HPI Neurological: ABSENT: abnormal gait, abnormal speech, confusion, dizziness, focal weakness, syncope Psychiatric: ABSENT: anxiety, depression, homidical ideation, suicidal ideation Endocrine: ABSENT: cold intolerance, heat intolerance, polydipsia, polyuria Hematologic/Lymphatic: ABSENT: easy bleeding, easy bruising, lymphadenopathy Physical Exam Vital Signs: Temp Pulse Resp BP Pulse Ox 97.6 F 76 16 132/51 H 98 03/04/19 11:17 03/04/19 11:17 03/04/19 11:17 03/04/19 11:17 03/04/19 11:17 Intake & Output 03/03/19 03/04/19 03/05/19 06:59 06:59 06:59 Intake Total 250 Balance 250 Weight 98.43 kg General appearance: PRESENT: no acute distress, obese Head exam: PRESENT: atraumatic, normocephalic Eye exam: PRESENT: conjunctiva pink, EOMI, PERRLA. ABSENT: scleral icterus Ear exam: PRESENT: normal external ear exam Mouth exam: PRESENT: moist Respiratory exam: PRESENT: clear to auscultation marino Cardiovascular exam: PRESENT: RRR. ABSENT: diastolic murmur, rubs, systolic murmur Vascular exam: ABSENT: pallor GI/Abdominal exam: PRESENT: normal bowel sounds, soft. ABSENT: distended, guarding, mass, organolmegaly, rebound, tenderness Rectal exam: PRESENT: deferred Extremities exam: PRESENT: joint swelling - left hand and 5th finger, pedal edema - left hand and 5th finger Musculoskeletal exam: PRESENT: ambulatory, deformity - due to multiple joints involvement with arthritis, tenderness - left hand and 5th finger. ABSENT: normal inspection Neurological exam: PRESENT: alert, awake, oriented to person, oriented to place, oriented to time, oriented to situation, CN II-XII grossly intact. ABSENT: motor sensory deficit Psychiatric exam: PRESENT: appropriate affect, normal mood. ABSENT: homicidal ideation, suicidal ideation Skin exam: PRESENT: dry, warm, other - fluctuant, erythematous, tender lesion spreading over left 5th fingerand dorsum of left hand. There are 2 jaclyn suggestive of abscess formation. Results Laboratory Results: 03/04/19 13:25 03/04/19 13:25 03/04/19 03/04/19 13:25 13:25 WBC 8.4 RBC 4.06 L Hgb 12.4 L Hct 36.8 L MCV 91 MCH 30.7 MCHC 33.9 RDW 12.4 Plt Count 156 Seg Neutrophils % 81.5 H Sodium 137.4 Potassium 4.0 Chloride 103 Carbon Dioxide 25 Anion Gap 9 BUN 49 H Creatinine 2.28 H Est GFR ( Amer) 35 L Glucose 124 H Calcium 9.0 Total Bilirubin 0.4 AST 23 Alkaline Phosphatase 55 Total Protein 7.0 Albumin 3.7 03/04/19 03/04/19 13:25 13:25 Creatine Kinase 100 CK-MB (CK-2) 3.52 Troponin I 0.017 Assessment & Plan - Diagnosis (1) Failure of outpatient treatment Is this a current diagnosis for this admission?: Yes Plan: See admitting attending physician orders for details about care plan. (2) Cellulitis of left finger Is this a current diagnosis for this admission?: Yes Plan: See admitting attending physician orders for details about care plan. (3) Cellulitis of left hand Is this a current diagnosis for this admission?: Yes Plan: See admitting attending physician orders for details about care plan. (4) Acute kidney injury Is this a current diagnosis for this admission?: Yes Plan: See admitting attending physician orders for details about care plan. (5) Diabetes mellitus type 2 in obese Is this a current diagnosis for this admission?: Yes Plan: See admitting attending physician orders for details about care plan. (6) Hypertension Qualifiers: Hypertension type: essential hypertension Qualified Code(s): I10 - Essential (primary) hypertension Is this a current diagnosis for this admission?: Yes Plan: See admitting attending physician orders for details about care plan. (7) CAD (coronary artery disease) Qualifiers: Coronary Disease-Associated Artery/Lesion type: creek artery Associated angina: without angina Is this a current diagnosis for this admission?: Yes Plan: See admitting attending physician orders for details about care plan. (8) Hyperlipidemia Qualifiers: Hyperlipidemia type: mixed hyperlipidemia Qualified Code(s): E78.2 - Mixed hyperlipidemia Is this a current diagnosis for this admission?: Yes Plan: See admitting attending physician orders for details about care plan. - Time Time Spent: 50 to 70 Minutes Medications reviewed and adjusted accordingly: Yes Anticipated discharge: Home Within: within 48 hours - Inpatient Certification Based on my medical assessment, after consideration of the patient's comorbidities, presenting symptoms, or acuity I expect that the services needed warrant INPATIENT care.: No I certify that my determination is in accordance with my understanding of Medicare's requirements for reasonable and necessary INPATIENT services [42 CFR 412.3e].: No Medical Necessity: Significant Comorbidiites Make Outpatient Treatment Too Risky, Need Close Monitoring Due to Risk of Patient Decompensation, Need For IV Fluids, Need For Continuous Telemetry Monitoring, Need for IV Antibiotics, Risk of Complication if Not Cared For in Hospital, Risk of Diagnosis Which Will Require Inpatient Eval/Care/Monitoring Post Hospital Care: D/C Recreation Facilities Supervisor Documentation - Plan Summary Plan Summary: See admitting attending physician orders for details about care plan.
--- NOTE | 2019-03-04 18:10 | PDOC CONSULTATION ---
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 He was noted to be red initially and about 2 days later went to his primary physician and was given p.o. antibiotics. However in the past day or so the redness turned to swelling and more pains in subsequently was admitted today for abscess of the left hand. Patient denies any fever nor chills. However he has difficulty completely flexing his left fingers because of tightness. He has good sensations to his fingers however. Past Medical History Cardiac Medical History: Reports: Coronary Artery Disease, Hyperlipidema, Hy pertension - MEDICATED Denies: Myocardial Infarction Pulmonary Medical History: Reports: Asthma - NO MEDS Denies: Bronchitis, Chronic Obstructive Pulmonary Disease (COPD), Pneumonia Neurological Medical History: Denies: Seizures Endocrine Medical History: Reports: Diabetes Mellitus Type 2 GI Medical History: Denies: Hepatitis, Hiatal Hernia Musculoskeltal Medical History: Denies: Arthritis Hematology: Denies: Anemia, Sickle Cell Disease Past Surgical History Past Surgical History: Denies: Pacemaker Social History Smoking Status: Never Smoker Frequency of Alcohol Use: Rare Hx Recreational Drug Use: No Drugs: None Hx Prescription Drug Abuse: No - Advance Directive Resuscitation Status: Full Code Family History Family History: Reviewed & Not Pertinent Parental Family History Reviewed: Yes Children Family History Reviewed: No Sibling(s) Family History Reviewed.: No Medication/Allergy Home Medications: Ascorbic Acid [Vitamin C 500 mg Tablet] 500 mg PO DAILY 03/04/19 Aspirin [Aspirin 81 mg Chewable Tablet] 81 mg PO DAILY 03/04/19 Canagliflozin [Invokana] 300 mg PO DAILY 03/04/19 Gabapentin [Neurontin 300 mg Capsule] 300 mg PO Q8 03/04/19 Glipizide [Glocotrol 10 Mg Tablet] 10 mg PO Q12 03/04/19 Hydralazine HCl [Apresoline 50 mg Tablet] 50 mg PO Q8 03/04/19 Lisinopril/Hydrochlorothiazide [Lisinopril-Hctz 20-25 mg Tab] 1 each PO DAILY 03/04/19 Simvastatin [Zocor 20 mg Tablet] 20 mg PO DAILY 03/04/19 Sitagliptin Phos/Metformin HCl [Janumet 50-1,000 Mg Tablet] 1 each PO Q12 03/04/19 Sulfamethoxazole/Trimethoprim [Septra-Ds 800-160 mg Tablet] 1 tab PO Q12 03/04/19 Ubidecarenone [Coq-10] 100 mg PO DAILY 03/04/19 Allergies/Adverse Reactions: Penicillins Allergy (Severe, Verified 09/24/17 09:17) Anaphylaxis BEE STINGS Allergy (Severe, Uncoded 09/24/17 09:17) Anaphylaxis Review of Systems Constitutional: PRESENT: as per HPI Cardiovascular: PRESENT: other - No chest pains no shortness of breath Integumentary: PRESENT: other - The left lateral hand is swollen and erythematous. There is tender swelling along the lateral left fifth proximal phalange and the metacarpophalangeal joint area on the fifth side also. There is a good radial palpable pulse. Patient able to flex his left fingers but not completely. His fingers showed intact sensation Physical Exam Vital Signs: Temp Pulse Resp BP Pulse Ox 97.6 F 76 16 132/51 H 98 03/04/19 11:17 03/04/19 11:17 03/04/19 11:17 03/04/19 11:17 03/04/19 11:17 Intake & Output 03/03/19 03/04/19 03/05/19 06:59 06:59 06:59 Intake Total 515 Balance 515 Weight 98.43 kg General appearance: PRESENT: mild distress Head exam: PRESENT: atraumatic Eye exam: PRESENT: conjunctiva pink Mouth exam: PRESENT: moist Neck exam: PRESENT: full ROM Respiratory exam: PRESENT: clear to auscultation marino Cardiovascular exam: PRESENT: RRR Pulses: PRESENT: normal radial pulses Vascular exam: PRESENT: normal capillary refill GI/Abdominal exam: PRESENT: soft Rectal exam: PRESENT: deferred Extremities exam: PRESENT: other - There is tender swelling along the left lateral fifth proximal phalange and the fifth meta carpal phalangeal joint area Neurological exam: PRESENT: oriented to person, oriented to place, oriented to time, oriented to situation Psychiatric exam: PRESENT: appropriate affect Skin exam: PRESENT: erythema, warm - Left fifth finger and metacarpophalangeal joint area Results Laboratory Results: 03/04/19 13:25 03/04/19 13:25 03/04/19 03/04/19 13:25 13:25 WBC 8.4 RBC 4.06 L Hgb 12.4 L Hct 36.8 L MCV 91 MCH 30.7 MCHC 33.9 RDW 12.4 Plt Count 156 Seg Neutrophils % 81.5 H Sodium 137.4 Potassium 4.0 Chloride 103 Carbon Dioxide 25 Anion Gap 9 BUN 49 H Creatinine 2.28 H Est GFR ( Amer) 35 L Glucose 124 H Calcium 9.0 Total Bilirubin 0.4 AST 23 Alkaline Phosphatase 55 Total Protein 7.0 Albumin 3.7 03/04/19 03/04/19 13:25 13:25 Creatine Kinase 100 CK-MB (CK-2) 3.52 Troponin I 0.017 Assessment & Plan - Time Time Spent: 30 to 50 Minutes - Inpatient Certification Medical Necessity: Need for IV Antibiotics, Need for Surgery - Plan Summary Plan Summary: This is a 68-year-old male with 2 abscesses on the left hand one on the left proximal phalange and fifth metacarpal phalangeal joint area. He is a type II diabetic on p.o. and a diabetes medication Plans: Continue IV antibiotics We will schedule I&D of the left hand in a.m. Keep n.p.o. from midnight tonight
--- NOTE | 2019-03-04 19:09 | EKG REPORT ---
SEVERITY:- ABNORMAL ECG - SINUS RHYTHM MULTIFORM VENTRICULAR PREMATURE COMPLEXES NONSPECIFIC T ABNORMALITIES, LATERAL LEADS BORDERLINE PROLONGED QT INTERVAL : Confirmed by: Shannon Ayon MD 04-Mar-2019 19:08:44
[2019-03-04] MEDS: HYDRALAZINE HCL 50 MG TABLET PO SCH (21:15)
[2019-03-04] MEDS: GABAPENTIN 300 MG CAPSULE PO SCH (21:15)
[2019-03-04] MEDS: SIMVASTATIN 10 MG TABLET PO SCH (21:16)
[2019-03-04] MEDS: GLIPIZIDE 10 MG TABLET PO SCH (21:17)
[2019-03-05] MEDS: GABAPENTIN 300 MG CAPSULE PO SCH ×3 (06:00→21:30)
[2019-03-05] MEDS: HYDRALAZINE HCL 50 MG TABLET PO SCH ×3 (06:00→21:31)
[2019-03-05] MEDS: PANTOPRAZOLE SODIUM 40 MG TABLET.DR PO SCH (06:01)
[2019-03-05] MEDS: DOXYCYCLINE HYCLATE 100 MG in DEXTROSE 5%-WATER 250 ML IV SCH ×2 (06:08→19:42)
[2019-03-05] MEDS ORDERED: PROPOFOL INJ 200 MG/20 ML VIAL IV ONE (09:19)
[2019-03-05] MEDS ORDERED: MIDAZOLAM 2 MG/2 ML INJ ONE (09:19)
[2019-03-05] MEDS ORDERED: FENTANYL CITRATE INJ/PF 100 MCG/2 ML AMPUL ONE (09:19)
[2019-03-05] MEDS ORDERED: LIDOCAINE 2%/EPINEPHRINE INJ 20 ML VIAL ONE (09:53)
[2019-03-05] MEDS ORDERED: ROPIVACAINE HCL 0.5% INJ/PF (5 MG/1 ML) 30 ML SDV ONE (09:54)
[2019-03-05] MEDS ORDERED: (PENDING PHARMACY ID) (Ubidecarenone [Coq-10] 100 MG) PO SCH (10:00)
--- NOTE | 2019-03-05 10:54 | Operative Report ---
Nonrecallable Operative Report DATE OF SURGERY: 03/05/19 PREOPERATIVE DIAGNOSIS: left hand abscess POSTOPERATIVE DIAGNOSIS: left hand abscess OPERATION: incision drainage of left hand abscess SURGEON: TOBIN ACEVES ANESTHESIA: IV-Regional TISSUE REMOVED OR ALTERED: 30cc pus COMPLICATIONS: none ESTIMATED BLOOD LOSS: 10cc INTRAOPERATIVE FINDINGS: 30cc pus no evidence of extension to extensor sheath PROCEDURE: Patient was brought to the operating awake alert in stable condition he was previously given a left axillary block by anesthesia The left hand was prepped and draped in usual sterile fashion. Lateral aspect of the left hand had a large abscess extending onto the dorsum laterally over the metacarpal joint and extending down to the mid fifth finger a longitudinal incision was made over the pointing abscess in the lateral left hand this extended down to the mid portion of the proximal phalanx. Once we made the incision a large amount of creamy white pus exuded from the wound approximately 30 cc treatment of the soft tissue of the left hand then ensued with a blunt and sharp dissection there is a 1 vein that was thrombosed and this was excised and controlled with 3-0 Vicryl suture they did not seem to extend down to the extensor tendon sheath. The abscess cavity was copiously irrigated with normal saline suctioned dry. Hemostasis was obtained with digital pressure Bovie cautery of the skin edge. There was a small amount of skin necrosis that was excised with Metzenbaum scissors. Once we irrigated the abscess cavity repacked the wound with a Betadine soaked sponge which completed the procedure estimated blood loss was 10 cc sponge and counts correct x2 the patient was transferred recovery in stable condition
[2019-03-05] MEDS: INSULIN LISPRO 100 UNIT/ML 3 ML VIAL SUBCUT SCH ×4 (10:55→21:34)
[2019-03-05] MEDS: ENOXAPARIN SODIUM INJ 40 MG/0.4 ML DISP.SYRIN SUBCUT SCH (10:57)
[2019-03-05] MEDS: GLIPIZIDE 10 MG TABLET PO SCH ×2 (12:46→21:33)
[2019-03-05] MEDS: VANCOMYCIN HCL 1,250 MG in DEXTROSE 5%-WATER 250 ML IV SCH (12:50)
[2019-03-05] MEDS: ASCORBIC ACID 500 MG TABLET PO SCH (14:54)
--- NOTE | 2019-03-05 15:48 | PDOC PROGRESS REPORT ---
Subjective Progress Note for:: 03/05/19 Subjective:: Patient seen at the bedside, he has abscess of the left and status post incision and drainage Reason For Visit: LEFT HAND AND FINGER CELLULITIS/ABSCESS,HTN Physical Exam Vital Signs: Temp Pulse Resp BP Pulse Ox 98.2 F 74 17 124/49 L 94 03/05/19 07:55 03/05/19 07:55 03/05/19 07:55 03/05/19 07:55 03/05/19 07:55 Intake & Output 03/04/19 03/05/19 03/06/19 06:59 06:59 06:59 Intake Total 1565 740 Output Total 500 Balance 1565 240 Weight 98.43 kg General appearance: PRESENT: no acute distress, well-developed, well-nourished Head exam: PRESENT: atraumatic, normocephalic Eye exam: PRESENT: conjunctiva pink, EOMI, PERRLA Ear exam: PRESENT: normal external ear exam Mouth exam: PRESENT: moist, tongue midline Neck exam: PRESENT: full ROM Respiratory exam: PRESENT: clear to auscultation marino Cardiovascular exam: PRESENT: RRR, +S1, +S2 Pulses: PRESENT: normal dorsalis pedis pul, +2 pedal pulses bilateral Vascular exam: PRESENT: normal capillary refill GI/Abdominal exam: PRESENT: normal bowel sounds, soft Rectal exam: PRESENT: deferred Neurological exam: PRESENT: alert, awake, oriented to person, oriented to place, oriented to time, oriented to situation, CN II-XII grossly intact Psychiatric exam: PRESENT: appropriate affect, normal mood Skin exam: PRESENT: dry, intact, warm. ABSENT: cyanosis, rash Results Laboratory Results: 03/04/19 13:25 03/04/19 13:25 03/04/19 03/04/19 13:25 13:25 Creatine Kinase 100 CK-MB (CK-2) 3.52 Troponin I 0.017 Assessment & Plan - Diagnosis (1) Abscess of left hand Is this a current diagnosis for this admission?: Yes Plan: Continue IV antibiotic - Time Time Spent with patient: 15-24 minutes Level of Care: MEDICAL Medications reviewed and adjusted accordingly: Yes
[2019-03-05] MEDS: NORMAL SALINE 1000 ML 1,000 ML IV PRN (16:30)
[2019-03-05] MEDS: OXYCODONE-ACETAMINOPHEN 5-325 MG TABLET PO PRN (19:42)
[2019-03-05] MEDS: SIMVASTATIN 10 MG TABLET PO SCH (21:31)
[2019-03-06] MEDS: OXYCODONE HCL IR 5 MG TABLET PO PRN ×3 (01:53→17:17)
[2019-03-06] MEDS: OXYCODONE-ACETAMINOPHEN 5-325 MG TABLET PO PRN ×4 (01:53→17:17)
[2019-03-06 05:30] LABS: ABSOLUTE BASOPHILS # (AUTO) 0.1 10^3/uL (0.0-0.2); ABSOLUTE EOSINOPHILS # (AUTO) 0.1 10^3/uL (0.0-0.6); ABSOLUTE LYMPHOCYTES (AUTO) 0.7 10^3/uL (0.5-4.7); ABSOLUTE MONOCYTES (AUTO) 0.9 10^3/uL (0.1-1.4); ABSOLUTE NEUT (AUTO) 3.3 10^3/uL (1.7-8.2); BASOPHILS % (AUTO) 1.2 % (0-2); EOSINOPHILS % (AUTO) 1.9 % (0-6); HEMATOCRIT 35.3 % (37.9-51.0); HEMOGLOBIN 11.9 g/dL (13.5-17.0); LYMPHOCYTES % (AUTO) 13.6 % (13-45); MEAN CORPUSCULAR HEMOGLOBIN 30.6 pg (27.0-33.4); MEAN CORPUSCULAR HGB CONC 33.7 g/dL (32.0-36.0); MEAN CORPUSCULAR VOLUME 91 fl (80-97); MONOCYTES % (AUTO) 18.1 % (3-13); PLATELET COUNT 154 10^3/uL (150-450); RED BLOOD COUNT 3.89 10^6/uL (4.35-5.55); RED CELL DISTRIBUTION WIDTH 12.5 % (11.5-14.0); SEGMENTED NEUTROPHILS % (AUTO) 65.2 % (42-78); TOTAL CELLS COUNTED % (AUTO) 100 %; WHITE BLOOD COUNT 5.1 10^3/uL (4.0-10.5)
[2019-03-06] MEDS: HYDRALAZINE HCL 50 MG TABLET PO SCH ×3 (05:45→21:18)
[2019-03-06] MEDS: PANTOPRAZOLE SODIUM 40 MG TABLET.DR PO SCH (05:45)
[2019-03-06] MEDS: DOXYCYCLINE HYCLATE 100 MG in DEXTROSE 5%-WATER 250 ML IV SCH ×2 (05:45→17:16)
[2019-03-06] MEDS: GABAPENTIN 300 MG CAPSULE PO SCH ×3 (05:45→21:18)
[2019-03-06] MEDS: NORMAL SALINE 1000 ML 1,000 ML IV PRN (05:48)
[2019-03-06 05:56] LABS: ANION GAP 8 (5-19); BLOOD UREA NITROGEN 30 mg/dL (7-20); CALCIUM 8.7 mg/dL (8.4-10.2); CARBON DIOXIDE 24 mmol/L (22-30); CHLORIDE 109 mmol/L (98-107); POTASSIUM 4.3 mmol/L (3.6-5.0)
[2019-03-06 06:12] LABS: GLUCOSE 69 mg/dL (75-110)
[2019-03-06] MEDS: INSULIN LISPRO 100 UNIT/ML 3 ML VIAL SUBCUT SCH ×4 (08:54→21:17)
[2019-03-06] MEDS: GLIPIZIDE 10 MG TABLET PO SCH ×2 (10:02→21:21)
[2019-03-06] MEDS: ASCORBIC ACID 500 MG TABLET PO SCH (10:03)
[2019-03-06] MEDS: ENOXAPARIN SODIUM INJ 40 MG/0.4 ML DISP.SYRIN SUBCUT SCH (10:14)
--- NOTE | 2019-03-06 10:50 | PDOC PROGRESS REPORT ---
Subjective Progress Note for:: 03/06/19 Subjective:: left hand feels better less pain and swelling Reason For Visit: LEFT HAND AND FINGER CELLULITIS/ABSCESS,HTN Physical Exam Vital Signs: Temp Pulse Resp BP Pulse Ox 97.9 F 67 17 131/59 H 93 03/06/19 03:40 03/06/19 07:00 03/06/19 03:40 03/06/19 03:40 03/06/19 03:40 Intake & Output 03/05/19 03/06/19 03/07/19 06:59 06:59 06:59 Intake Total 1565 4180 Output Total 500 Balance 1565 3680 Weight 98.43 kg 97.4 kg General appearance: PRESENT: no acute distress Head exam: PRESENT: normocephalic Eye exam: PRESENT: EOMI Ear exam: PRESENT: normal external ear exam Mouth exam: PRESENT: moist Teeth exam: PRESENT: poor dentation Neck exam: PRESENT: full ROM Respiratory exam: PRESENT: clear to auscultation marino Cardiovascular exam: PRESENT: RRR Pulses: PRESENT: normal radial pulses, normal femoral pulses Vascular exam: PRESENT: normal capillary refill GI/Abdominal exam: PRESENT: soft Rectal exam: PRESENT: deferred Extremities exam: PRESENT: full ROM, other - left lat hand with open wound at lat aspect from mid metacarpal to proximal phalanx There is 2 small areas of skin necrosis on the ventral portion of the wound that may need further debridement the base of the wound has some mild fibrinous exudate on it no evidence of any further expressible pus. Is markedly less swelling and cellulitis. Neurological exam: PRESENT: alert, awake, oriented to person, oriented to place Psychiatric exam: PRESENT: appropriate affect Skin exam: PRESENT: dry Results Laboratory Results: 03/06/19 05:11 03/06/19 05:11 03/06/19 03/06/19 05:11 05:11 WBC 5.1 RBC 3.89 L Hgb 11.9 L Hct 35.3 L MCV 91 MCH 30.6 MCHC 33.7 RDW 12.5 Plt Count 154 Seg Neutrophils % 65.2 Sodium 141.2 Potassium 4.3 Chloride 109 H Carbon Dioxide 24 Anion Gap 8 BUN 30 H Creatinine 1.53 H Est GFR ( Amer) 55 L Glucose 69 L Calcium 8.7 03/04/19 03/04/19 13:25 13:25 Creatine Kinase 100 CK-MB (CK-2) 3.52 Troponin I 0.017 Assessment & Plan - Time Time Spent with patient: 25-34 minutes - Plan Summary Plan Summary: Status post open drainage and debridement of left lateral hand abscess. Wound currently is clean being packed with saline soaked gauze sponges to be changed 3 times daily May need some minor further local skin debridement. We will continue dressing changes for now as well as antibiotics.
[2019-03-06] MEDS: VANCOMYCIN HCL 1,250 MG in DEXTROSE 5%-WATER 250 ML IV SCH (12:14)
--- NOTE | 2019-03-06 13:27 | PDOC PROGRESS REPORT ---
Subjective Progress Note for:: 03/06/19 Subjective:: Patient seen by the bedside, status post incision and drainage of abscess of the left hand Reason For Visit: LEFT HAND AND FINGER CELLULITIS/ABSCESS,HTN Physical Exam Vital Signs: Temp Pulse Resp BP Pulse Ox 97.6 F 70 18 145/84 H 97 03/06/19 08:10 03/06/19 08:10 03/06/19 08:10 03/06/19 08:10 03/06/19 08:10 Intake & Output 03/05/19 03/06/19 03/07/19 06:59 06:59 06:59 Intake Total 1565 4180 250 Output Total 500 Balance 1565 3680 250 Weight 98.43 kg 97.4 kg General appearance: PRESENT: no acute distress Eye exam: PRESENT: PERRLA Respiratory exam: PRESENT: clear to auscultation marino Cardiovascular exam: PRESENT: +S1, +S2 GI/Abdominal exam: PRESENT: soft Results Laboratory Results: 03/06/19 05:11 03/06/19 05:11 03/06/19 03/06/19 05:11 05:11 WBC 5.1 RBC 3.89 L Hgb 11.9 L Hct 35.3 L MCV 91 MCH 30.6 MCHC 33.7 RDW 12.5 Plt Count 154 Seg Neutrophils % 65.2 Sodium 141.2 Potassium 4.3 Chloride 109 H Carbon Dioxide 24 Anion Gap 8 BUN 30 H Creatinine 1.53 H Est GFR ( Amer) 55 L Glucose 69 L Calcium 8.7 03/04/19 03/04/19 13:25 13:25 Creatine Kinase 100 CK-MB (CK-2) 3.52 Troponin I 0.017 Assessment & Plan - Diagnosis (1) Abscess of left hand Is this a current diagnosis for this admission?: Yes Plan: Continue IV antibiotic - Time Time Spent with patient: Less than 15 minutes
[2019-03-06] MEDS: SIMVASTATIN 10 MG TABLET PO SCH (21:18)
[2019-03-07] MEDS: OXYCODONE-ACETAMINOPHEN 5-325 MG TABLET PO PRN ×2 (00:57→07:16)
[2019-03-07] MEDS: NORMAL SALINE 1000 ML 1,000 ML IV PRN ×3 (00:59→13:37)
[2019-03-07] MEDS: OXYCODONE HCL IR 5 MG TABLET PO PRN ×2 (00:59→07:17)
[2019-03-07] MEDS: GABAPENTIN 300 MG CAPSULE PO SCH ×3 (05:29→21:56)
[2019-03-07] MEDS: PANTOPRAZOLE SODIUM 40 MG TABLET.DR PO SCH (05:29)
[2019-03-07] MEDS: HYDRALAZINE HCL 50 MG TABLET PO SCH ×3 (05:29→21:53)
[2019-03-07] MEDS: DOXYCYCLINE HYCLATE 100 MG in DEXTROSE 5%-WATER 250 ML IV SCH ×2 (05:29→17:34)
[2019-03-07] MEDS: INSULIN LISPRO 100 UNIT/ML 3 ML VIAL SUBCUT SCH ×3 (08:13→16:53)
--- NOTE | 2019-03-07 09:48 | PDOC PROGRESS REPORT ---
Subjective Progress Note for:: 03/07/19 Reason For Visit: LEFT HAND AND FINGER CELLULITIS/ABSCESS,HTN Patient states his hand feels much better. 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 He just got a call from the lab stating he is growing RSA; he denies previous MRSA infection. Physical Exam Vital Signs: Temp Pulse Resp BP Pulse Ox 97.3 F 67 16 128/58 H 95 03/07/19 00:00 03/07/19 07:00 03/07/19 00:00 03/07/19 00:00 03/07/19 00:00 Intake & Output 03/06/19 03/07/19 03/08/19 06:59 06:59 06:59 Intake Total 4180 3031 250 Output Total 500 Balance 3680 3031 250 Weight 97.4 kg 96.8 kg General appearance: PRESENT: no acute distress Musculoskeletal exam: PRESENT: other - Left hand dressing removed. The operative incision is very clean, with 75% of the bed granulating. There is some devitalized fat proximally. There are areas of partial epidermal lysis; the dermis appears to be intact however. There is minimal erythema the first webspace; patient is able to partially close the lateral aspect of his hand. Results Laboratory Results: 03/06/19 05:11 03/06/19 05:11 03/05/19 10:29 Hand - Left Gram Stain - Final 03/05/19 10:29 Hand - Left Wound Culture - Final Mrsa (Meth Resis Staph Aureus) No Anaerobic Organisms 03/04/19 03/04/19 13:25 13:25 Creatine Kinase 100 CK-MB (CK-2) 3.52 Troponin I 0.017 Assessment & Plan - Diagnosis (1) Abscess of left hand Is this a current diagnosis for this admission?: Yes Plan: Impression and recommendations: MRSA left hand status post vigorous debridement by Dr. Segura 48 hours ago with clinical improvement in left hand function, and sepsis control. Recommendations: 1. We will get patient in shower, washing with wound exposed and scrub brush 2. Will initiate MRSA and instrument protocol. 3. Start stool softener 4. We will get occupational therapy to evaluate and treat patient. 5. Dissipate discharge in the next 24 to 36 hours. - Time Time Spent with patient: 15-24 minutes
[2019-03-07] MEDS: ASCORBIC ACID 500 MG TABLET PO SCH (10:45)
[2019-03-07] MEDS: KETOROLAC TROMETHAMINE 10 MG TABLET PO PRN ×2 (10:45→21:57)
[2019-03-07] MEDS: ENOXAPARIN SODIUM INJ 40 MG/0.4 ML DISP.SYRIN SUBCUT SCH (10:45)
[2019-03-07] MEDS: GLIPIZIDE 10 MG TABLET PO SCH ×2 (10:58→21:55)
[2019-03-07 12:01] LABS: VANCOMYCIN,TROUGH 9.5 ug/mL (5.0-20.0)
[2019-03-07] MEDS: VANCOMYCIN HCL 1,250 MG in DEXTROSE 5%-WATER 250 ML IV SCH (13:35)
[2019-03-07] MEDS: DOCUSATE SODIUM 100 MG CAPSULE PO SCH (17:33)
[2019-03-07] MEDS: SIMVASTATIN 10 MG TABLET PO SCH (21:57)
[2019-03-08] MEDS: INSULIN LISPRO 100 UNIT/ML 3 ML VIAL SUBCUT SCH ×5 (00:04→21:49)
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
[2019-03-08] MEDS: DOXYCYCLINE HYCLATE 100 MG in DEXTROSE 5%-WATER 250 ML IV SCH (05:48)
[2019-03-08] MEDS: HYDRALAZINE HCL 50 MG TABLET PO SCH ×3 (05:49→21:48)
[2019-03-08] MEDS: NORMAL SALINE 1000 ML 1,000 ML IV PRN (05:50)
[2019-03-08] MEDS: PANTOPRAZOLE SODIUM 40 MG TABLET.DR PO SCH (05:50)
[2019-03-08] MEDS: GABAPENTIN 300 MG CAPSULE PO SCH ×3 (05:50→21:48)
--- NOTE | 2019-03-08 09:43 | PDOC PROGRESS REPORT ---
Subjective Progress Note for:: 03/08/19 Subjective:: Feels well. Reason For Visit: LEFT HAND AND FINGER CELLULITIS/ABSCESS,HTN Physical Exam Vital Signs: Temp Pulse Resp BP Pulse Ox 97.7 F 69 18 152/63 H 95 03/08/19 08:18 03/08/19 08:18 03/08/19 08:18 03/08/19 08:18 03/08/19 08:18 Intake & Output 03/07/19 03/08/19 03/09/19 06:59 06:59 06:59 Intake Total 3031 3632 Balance 3031 3632 Weight 96.8 kg 96.8 kg Extremities exam: PRESENT: other - Left hand wound appears clean with minimal surrounding erythema. Granulation tissue is present. No undrained abscess. Results Laboratory Results: 03/06/19 05:11 03/07/19 11:29 03/07/19 11:29 Creatinine 1.16 Est GFR ( Amer) > 60 03/05/19 10:29 Hand - Left Gram Stain - Final 03/05/19 10:29 Hand - Left Wound Culture - Final Mrsa (Meth Resis Staph Aureus) No Anaerobic Organisms 03/04/19 03/04/19 13:25 13:25 Creatine Kinase 100 CK-MB (CK-2) 3.52 Troponin I 0.017 Assessment & Plan - Diagnosis (1) Abscess of left hand Is this a current diagnosis for this admission?: Yes Plan: That is post debridement. Infection is under control. Wound care instructions were gone over with the patient with the patient demonstrating ability to do dressing changes at home. May discharge patient home on twice daily wet-to-dry dressings to his hand. Recommend clindamycin p.o. for 7 more days at home. Follow-up with Dr. Segura in 1 week. - Time Time Spent with patient: Less than 15 minutes
[2019-03-08] MEDS: DOCUSATE SODIUM 100 MG CAPSULE PO SCH ×2 (10:30→17:03)
[2019-03-08] MEDS: ASCORBIC ACID 500 MG TABLET PO SCH (10:30)
[2019-03-08] MEDS: ENOXAPARIN SODIUM INJ 40 MG/0.4 ML DISP.SYRIN SUBCUT SCH (10:31)
[2019-03-08] MEDS: GLIPIZIDE 10 MG TABLET PO SCH ×2 (11:00→21:49)
[2019-03-08] MEDS: KETOROLAC TROMETHAMINE 10 MG TABLET PO PRN (11:34)
[2019-03-08] MEDS: VANCOMYCIN HCL 1,250 MG in DEXTROSE 5%-WATER 250 ML IV SCH (13:00)
[2019-03-08] MEDS: DOXYCYCLINE HYCLATE 100 MG TABLET PO SCH (17:03)
--- NOTE | 2019-03-08 18:19 | PDOC PROGRESS REPORT ---
Subjective Progress Note for:: 03/08/19 Subjective:: Patient denied any fever or chills. Wound is looking very good with minimal drainage or discharge. No chest pain or difficulty with breathing. No nausea, vomiting, or abdominal pain. Reason For Visit: LEFT HAND AND FINGER CELLULITIS/ABSCESS,HTN Physical Exam Vital Signs: Temp Pulse Resp BP Pulse Ox 98 F 72 18 134/54 H 95 03/08/19 15:54 03/08/19 15:54 03/08/19 15:54 03/08/19 15:54 03/08/19 15:54 Intake & Output 03/07/19 03/08/19 03/09/19 06:59 06:59 06:59 Intake Total 3031 3632 1050 Balance 3031 3632 1050 Weight 96.8 kg 96.8 kg Physical Exam: General appearance: PRESENT: no acute distress, obese Head exam: PRESENT: atraumatic, normocephalic Eye exam: PRESENT: conjunctiva pink. ABSENT: pallor, scleral icterus Ear exam: PRESENT: TM's normal bilaterally Mouth exam: PRESENT: moist Respiratory exam: PRESENT: clear to auscultation marino Cardiovascular exam: PRESENT: RRR. ABSENT: diastolic murmur, rubs, systolic murmur GI/Abdominal exam: PRESENT: normal bowel sounds, soft. ABSENT: distended, guard ing, mass, organomegaly, rebound, tenderness Extremities exam: ABSENT: pedal edema Neurological exam: PRESENT: alert, awake, oriented to person, oriented to place, oriented to time, oriented to situation, CN II-XII grossly intact. ABSENT: motor sensory deficit Psychiatric exam: PRESENT: appropriate affect, normal mood. ABSENT: homicidal ideation, suicidal ideation Skin exam: PRESENT: dry, warm, other - open surgical debridement wound on hypothenar aspect of left hand without significant drainage or discharge. Dressing is satisfactory. Results Laboratory Results: 03/06/19 05:11 03/07/19 11:29 03/04/19 03/04/19 13:25 13:25 Creatine Kinase 100 CK-MB (CK-2) 3.52 Troponin I 0.017 Assessment & Plan - Diagnosis (1) Failure of outpatient treatment Is this a current diagnosis for this admission?: Yes (2) Cellulitis of left finger Is this a current diagnosis for this admission?: Yes (3) Cellulitis of left hand Is this a current diagnosis for this admission?: Yes (4) Acute kidney injury Is this a current diagnosis for this admission?: Yes (5) Diabetes mellitus type 2 in obese Is this a current diagnosis for this admission?: Yes (6) Hypertension Qualifiers: Hypertension type: essential hypertension Qualified Code(s): I10 - Essential (primary) hypertension Is this a current diagnosis for this admission?: Yes (7) CAD (coronary artery disease) Qualifiers: Coronary Disease-Associated Artery/Lesion type: [place] artery Associated angina: without angina Is this a current diagnosis for this admission?: Yes (8) Hyperlipidemia Qualifiers: Hyperlipidemia type: mixed hyperlipidemia Qualified Code(s): E78.2 - Mixed hyperlipidemia Is this a current diagnosis for this admission?: Yes (9) MRSA (methicillin resistant Staphylococcus aureus) infection Is this a current diagnosis for this admission?: Yes - Time Time Spent with patient: 25-34 minutes Medications reviewed and adjusted accordingly: Yes Anticipated discharge: Home with Homehealth Within: Other - Inpatient Certification Based on my medical assessment, after consideration of the patient's comorbidities, presenting symptoms, or acuity I expect that the services needed warrant INPATIENT care.: Yes I certify that my determination is in accordance with my understanding of Medicare's requirements for reasonable and necessary INPATIENT services [42 CFR 412.3e].: Yes Medical Necessity: Significant Comorbidiites Make Outpatient Treatment Too Risky, Need Close Monitoring Due to Risk of Patient Decompensation, Need For IV Fluids, Need For Continuous Telemetry Monitoring, Need for IV Antibiotics, Risk of Complication if Not Cared For in Hospital, Risk of Diagnosis Which Will Require Inpatient Eval/Care/Monitoring Post Hospital Care: D/C In Service Coordinator Documentation - Plan Summary Plan Summary: D/C IV Vancomycin after tonight dose. Start on Oral Doxycycline 100 mg po bid. Patient will benefit from wound vac application to secure wound from reinfection and aide healing. Continue all other current medication management.
[2019-03-08] MEDS: OXYCODONE-ACETAMINOPHEN 5-325 MG TABLET PO PRN (21:46)
[2019-03-08] MEDS: SIMVASTATIN 10 MG TABLET PO SCH (21:48)
[2019-03-09] MEDS: HYDRALAZINE HCL 50 MG TABLET PO SCH ×2 (06:09→13:58)
[2019-03-09] MEDS: GABAPENTIN 300 MG CAPSULE PO SCH ×2 (06:09→13:17)
[2019-03-09] MEDS: DOXYCYCLINE HYCLATE 100 MG TABLET PO SCH (06:09)
[2019-03-09] MEDS: NORMAL SALINE 1000 ML 1,000 ML IV PRN (06:10)
[2019-03-09] MEDS: PANTOPRAZOLE SODIUM 40 MG TABLET.DR PO SCH (06:10)
[2019-03-09] MEDS: DOCUSATE SODIUM 100 MG CAPSULE PO SCH ×2 (10:35→18:00)
[2019-03-09] MEDS: ASCORBIC ACID 500 MG TABLET PO SCH (10:35)
[2019-03-09] MEDS: ENOXAPARIN SODIUM INJ 40 MG/0.4 ML DISP.SYRIN SUBCUT SCH (10:36)
[2019-03-09] MEDS: INSULIN LISPRO 100 UNIT/ML 3 ML VIAL SUBCUT SCH ×3 (10:39→17:42)
[2019-03-09] MEDS: GLIPIZIDE 10 MG TABLET PO SCH (10:39)
[2019-03-09] MEDS: VANCOMYCIN HCL 1,250 MG in DEXTROSE 5%-WATER 250 ML IV SCH (13:17)
[2019-03-09] MEDS ORDERED: INFLUENZA QUAD (6MOS+) 2019-20 VAC 0.5 ML SYR IM ONE (17:47)
[2019-03-09 17:52] VITALS: BP 153/76
--- NOTE | 2019-03-10 00:26 | PDOC DISCHARGE SUMMARY ---
Impression - Admit/DC Date/PCP Admission Date/Primary Care Provider: 03/07/19 12:05 ETELVINA LAMAR Discharge Date: 03/09/19 - Discharge Diagnosis (1) Failure of outpatient treatment Is this a current diagnosis for this admission?: Yes (2) Cellulitis of left finger Is this a current diagnosis for this admission?: Yes (3) Cellulitis of left hand Is this a current diagnosis for this admission?: Yes (4) Acute kidney injury Is this a current diagnosis for this admission?: Yes (5) Diabetes mellitus type 2 in obese Is this a current diagnosis for this admission?: Yes (6) Hypertension Is this a current diagnosis for this admission?: Yes (7) CAD (coronary artery disease) Is this a current diagnosis for this admission?: Yes (8) Hyperlipidemia Is this a current diagnosis for this admission?: Yes (9) MRSA (methicillin resistant Staphylococcus aureus) infection Is this a current diagnosis for this admission?: Yes - Additional Information Resuscitation Status: Full Code Discharge Diet: Cardiac, Diabetic Discharge Activity: Activity As Tolerated Referrals: ETELVINA LAMAR MD [Primary Care Provider] - 03/16/19 10:00 am Prescriptions: Doxycycline Hyclate 100 mg PO BID #20 capsule Home Medications: Ascorbic Acid [Vitamin C 500 mg Tablet] 500 mg PO DAILY 03/04/19 Aspirin [Aspirin 81 mg Chewable Tablet] 81 mg PO DAILY 03/04/19 Canagliflozin [Invokana] 300 mg PO DAILY 03/04/19 Gabapentin [Neurontin 300 mg Capsule] 300 mg PO Q8 03/04/19 Glipizide [Glucotrol 10 mg Tablet] 10 mg PO Q12 03/04/19 Hydralazine HCl [Apresoline 50 mg Tablet] 50 mg PO Q8 03/04/19 Lisinopril/Hydrochlorothiazide [Lisinopril-Hctz 20-25 mg Tab] 1 each PO DAILY 03/04/19 Simvastatin [Zocor 20 mg Tablet] 20 mg PO DAILY 03/04/19 Sitagliptin Phos/Metformin HCl [Janumet 50-1,000 mg Tablet] 1 each PO Q12 03/04/19 Ubidecarenone [Coq-10] 100 mg PO DAILY 03/04/19 Doxycycline Hyclate 100 mg PO BID #20 capsule 03/09/19 History of Present Illiness History of Present Illness: VIVIAN FARR is a 68 year old male known to my practice who presented to the office 2 days ago with left hand redness with involvement of left 5th finger. He was diagnosed with left hand including finger cellulitis. In view of his medical morbidities and associated leukocytosis he was management with Bactrim DS 1 tablet p.o bid. Patient reported worsening of left hand swelling and redness with fluid formation around his lesion. Patient presented to the office today for further re-evaluation. He denied definite fever but felt chilled occasionally. He denied any trauma or instrumentation on the lesion. He is a former hand with significant need of functional hands. His repeat CBC in the office revealed upward trend in his WBC that warrant direct admission to the hospital. His morbidities are as listed below. Hospital Course Hospital Course: He was admitted for left hand and finger cellulitis with abscess formation. He was managed with IV Vancomycin and Doxycycline. He was seen by the surgicalist group and has extensive debridement of the infection site on his left hand and 5th finger abscess. His associated leukocytosis did resolved. He will be discharged home today with home health agency service to include visiting nurse and negative pressure wound therapy device for wound management. He will follow up in the office as instructed upon discharge. Physical Exam Vital Signs: Temp Pulse Resp BP Pulse Ox 97.7 F 65 18 139/53 H 96 03/09/19 00:00 03/09/19 07:00 03/09/19 00:00 03/09/19 00:00 03/09/19 00:00 Intake & Output 03/08/19 03/09/19 03/10/19 06:59 06:59 06:59 Intake Total 3632 2300 Balance 3632 2300 Weight 96.8 kg 94.3 kg General appearance: PRESENT: no acute distress, obese Head exam: PRESENT: atraumatic, normocephalic Eye exam: PRESENT: conjunctiva pink. ABSENT: pallor, scleral icterus Ear exam: PRESENT: TM's normal bilaterally Mouth exam: PRESENT: moist Respiratory exam: PRESENT: clear to auscultation marino Cardiovascular exam: PRESENT: RRR. ABSENT: diastolic murmur, rubs, systolic murmur GI/Abdominal exam: PRESENT: normal bowel sounds, soft. ABSENT: distended, guarding, mass, organomegaly, rebound, tenderness Extremities exam: ABSENT: pedal edema Neurological exam: PRESENT: alert, awake, oriented to person, oriented to place, oriented to time, oriented to situation, CN II-XII grossly intact. ABSENT: motor sensory deficit Psychiatric exam: PRESENT: appropriate affect, normal mood. ABSENT: homicidal ideation, suicidal ideation Skin exam: PRESENT: dry, warm, other - open surgical debridement wound on hypothenar aspect of left hand without significant drainage or discharge. Dressing is satisfactory. Results Laboratory Results: WBC 5.1 10^3/uL (4.0-10.5) 03/06/19 05:11 RBC 3.89 10^6/uL (4.35-5.55) L 03/06/19 05:11 Hgb 11.9 g/dL (13.5-17.0) L 03/06/19 05:11 Hct 35.3 % (37.9-51.0) L 03/06/19 05:11 MCV 91 fl (80-97) 03/06/19 05:11 MCH 30.6 pg (27.0-33.4) 03/06/19 05:11 MCHC 33.7 g/dL (32.0-36.0) 03/06/19 05:11 RDW 12.5 % (11.5-14.0) 03/06/19 05:11 Plt Count 154 10^3/uL (150-450) 03/06/19 05:11 Lymph % (Auto) 13.6 % (13-45) 03/06/19 05:11 [place] % (Auto) 18.1 % (3-13) H 03/06/19 05:11 Eos % (Auto) 1.9 % (0-6) 03/06/19 05:11 Baso % (Auto) 1.2 % (0-2) 03/06/19 05:11 Absolute Neuts (auto) 3.3 10^3/uL (1.7-8.2) 03/06/19 05:11 Absolute Lymphs (auto) 0.7 10^3/uL (0.5-4.7) 03/06/19 05:11 Absolute Monos (auto) 0.9 10^3/uL (0.1-1.4) 03/06/19 05:11 Absolute Eos (auto) 0.1 10^3/uL (0.0-0.6) 03/06/19 05:11 Absolute Basos (auto) 0.1 10^3/uL (0.0-0.2) 03/06/19 05:11 Seg Neutrophils % 65.2 % (42-78) 03/06/19 05:11 PT 13.1 SEC (11.4-15.4) 03/04/19 13:25 INR 0.99 03/04/19 13:25 APTT 37.3 SEC (23.5-35.8) H 03/04/19 13:25 Sodium 141.2 mmol/L (137-145) 03/06/19 05:11 Potassium 4.3 mmol/L (3.6-5.0) 03/06/19 05:11 Chloride 109 mmol/L (98-107) H 03/06/19 05:11 Carbon Dioxide 24 mmol/L (22-30) 03/06/19 05:11 Anion Gap 8 (5-19) 03/06/19 05:11 BUN 30 mg/dL (7-20) H 03/06/19 05:11 Creatinine 1.16 mg/dL (0.52-1.25) 03/07/19 11:29 Est GFR ( Amer) > 60 (>60) 03/07/19 11:29 Est GFR (MDRD) Non-Af > 60 (>60) 03/07/19 11:29 Glucose 69 mg/dL (75-110) L 03/06/19 05:11 POC Glucose 95 mg/dL (70-110) 03/09/19 06:42 Calcium 8.7 mg/dL (8.4-10.2) 03/06/19 05:11 Total Bilirubin 0.4 mg/dL (0.2-1.3) 03/04/19 13:25 Direct Bilirubin 0.2 mg/dL (0.0-0.4) 03/04/19 13:25 Neonat Total Bilirubin Not Reportable 03/04/19 13:25 Neonat Direct Bilirubin Not Reportable 03/04/19 13:25 Neonat Indirect Bili Not Reportable 03/04/19 13:25 AST 23 U/L (17-59) 03/04/19 13:25 ALT 16 U/L (<50) 03/04/19 13:25 Alkaline Phosphatase 55 U/L (38-126) 03/04/19 13:25 Creatine Kinase 100 U/L (55-170) 03/04/19 13:25 CK-MB (CK-2) 3.52 ng/mL (<4.55) 03/04/19 13:25 Troponin I 0.017 ng/mL 03/04/19 13:25 Total Protein 7.0 g/dL (6.3-8.2) 03/04/19 13:25 Albumin 3.7 g/dL (3.5-5.0) 03/04/19 13:25 Time Trough Drawn 1129 03/07/19 11:29 Vancomycin Trough 9.5 ug/mL (5.0-20.0) 03/07/19 11:29 03/04/19 13:25 CK-MB (CK-2) 3.52 Troponin I 0.017 Plan Health Concerns: High risk of recurrent infection to the open wound. Need for NPWT device upon discharge. Plan of Treatment: D/C home on oral Doxycycline 100 mg p.o bid x 10 days as well as NPWT device. Goals: Complete wound healing. Time Spent: Greater than 30 Minutes - Care coordination with NPWT device DME supplier and post discharge care coordination with [employer] [employer]. Stroke Is this a Stroke Patient?: No Acute Heart Failure - Is this a Heart Failure Patient?: No
== END 2019-03-09 20:45 | disposition home health service (06) | DRG 580 ==
LOC: 4S 10:32 → OBSVTOIN 03-07 12:05
PROVIDERS: ADMIT Internal Medicine Geriatric Medicine; ATTEND Internal Medicine Geriatric Medicine
PROC: 0J9K0ZZ Drainage of Left Hand Subcutaneous Tissue and Fascia, Open Approach (ICD-10-PCS; principal; 2019-03-05 10:00)
DX: L03.012 Cellulitis of left finger (principal); L03.114 Cellulitis of left upper limb; N17.9 Acute kidney failure, unspecified; E11.43 Type 2 diabetes mellitus with diabetic autonomic (poly)neuropathy; E66.9 Obesity, unspecified; B95.62 Methicillin resistant Staphylococcus aureus infection as the cause of diseases classified elsewhere; I10 Essential (primary) hypertension; I25.10 Atherosclerotic heart disease of native coronary artery without angina pectoris; E78.5 Hyperlipidemia, unspecified; X58.XXXA Exposure to other specified factors, initial encounter; M47.22 Other spondylosis with radiculopathy, cervical region; K21.9 Gastro-esophageal reflux disease without esophagitis; J30.2 Other seasonal allergic rhinitis; Z68.30 Body mass index [BMI] 30.0-30.9, adult; Z79.84 Long term (current) use of oral hypoglycemic drugs; Z79.82 Long term (current) use of aspirin; Y93.89 Activity, other specified; Y92.89 Other specified places as the place of occurrence of the external cause; Y99.0 Civilian activity done for income or pay; Z88.0 Allergy status to penicillin; Z91.030 Bee allergy status; Z82.49 Family history of ischemic heart disease and other diseases of the circulatory system
CPT/HCPCS: 00400; 36415; 80048; 80053; 80202; 82550; 82553; 82565; 82962; 84484; 85025; 85610; 85730; 87040; 87070; 87075; 87077; 87186; 87205; 93005; 93010; G0378; G0379; J1650; J1815; J2250; J2704; J2795; J3010; J3370; J3490; J7030; J7060